=== PATIENT | male | born 1960 | race Caucasian/White ===

== ENCOUNTER 2017-09-01 12:07 | Inpatient (IN) | payer BC, OTHER ==
[~2017-09-01] VITALS: Ht 185.4 cm; Wt 148.2 kg
[~2017-09-01 12:07] MED LIST: COMMODE 3:1; DOCU1CAP39 PO; GABA400 PO; LEVEMIR SQ; LISI10 PO; NOVOLOGP2 SQ; OXYC1CAP PO; PACE200T4 PO; POLY119S PO; PROT40TA PO; Z.0.WALKERBAR; Z.0.WHEELBAR
[2017-09-01 12:15] VITALS: BP 140/63; PULSE 81; RESP 18; TEMP 98.3; O2SAT 94
[2017-09-01] MEDS ORDERED: INSU1INJ14 SQ (12:32)
[2017-09-01] MEDS ORDERED: TRAM50TA PO (12:32)
[2017-09-01] MEDS ORDERED: NOVOLOGP2 SQ (12:32)
[2017-09-01] MEDS ORDERED: VANCOMYCIN INJ 2,000 MG in SODIUM CHLORID 0.9% 500 ML INJ 500 ML IV STA (13:06)
[2017-09-01] MEDS ORDERED: PIPERACIL-TAZO 4.5 GM PREMIX 100 ML IV STA (13:06)
--- NOTE | 2017-09-01 13:13 | PD ---
HPI Chief Complaint: Skin Problem Time Seen by Provider: 12:49 Travel History International Travel<30 days: No Contact w/Intl Traveler<30days: No Traveled to known affect area: No History of Present Illness HPI This 57-year-old male is complaining of infection of his right foot. He has a history of diabetes for 20 years. He had an infection in his foot on in June which he believes cleared up. He went to see his windows phone developer last Sunday for some infection and she started him on antibiotics. He is not sure of this. He went to see his primary care doctor Sunday and was told that he should come to the hospital for intravenous antibiotics. He is not aware of fever or chills. He has neuropathy and does not have sensation in the foot. He does not have any pain. PFSH Past Medical History Arthritis: Yes Asthma: No Autoimmune Disease: No Anxiety: No Depression: No Heart Rhythm Problems: No Cancer: No Cardiovascular Problems: Yes High Cholesterol: Yes Chemotherapy: No Chest Pain: No Congestive Heart Failure: No COPD: No Cerebrovascular Accident: No Diabetes: Yes Patient Takes Glucophage: No Endocrine: Yes GERD: No Genitourinary: No Hiatal Hernia: Yes Immune Disorder: No Kidney Stones: No Musculoskeletal: Yes (right knee) Neurologic: Yes Psychiatric: No Reproductive: Yes (erectile dysfunction) Respiratory: Yes Migraines: No Radiation Therapy: No Renal Failure: No Seizures: No Sickle Cell Disease: No Sleep Apnea: Yes (didnt like the cpap) Thyroid Disease: No Ulcer: No Past Surgical History Abdominal Surgery: No AICD: No Arteriovenous Shunt: No Cardiac Surgery: No Ear Surgery: No Endocrine Surgery: No Eye Surgery: No Genitourinary Surgery: No Gynecologic Surgery: No Insulin Pump: No Joint Replacement: No Oral Surgery: No Pacemaker: No Thoracic Surgery: No Other Surgery: Yes (ARTHROSCOPIC MCL AND ACL REPAIR) Social History Alcohol Use: Yes (RARELY) Tobacco Use: No Substance Use: No Allergies-Medications (Allergen,Severity, Reaction): Coded Allergies: *MDRO Multi-Drug Resistant Organism (Verified Allergy, Unknown, 09/01/17) Hx MRSA 2011 Neck Wound Reported Meds & Prescriptions Reported Meds & Active Scripts Active Reported Gabapentin 300 Mg Cap 300 Mg PO TID Tramadol (Tramadol HCl) 50 Mg Tab 50 Mg PO Q4H PRN Tresiba Flextouch Pen Inj (Insulin Degludec Inj) 300 unit/3 ML Pen 80 Units SQ DAILY Novolog Inj (Insulin Aspart) 1,000 Unit/10 Ml Vial 0 SQ DIRECTED Sliding Scale as directed. Review of Systems General / Constitutional: No: Fever Eyes: No: Diploplia, Blurred Vision HENT: No: Headaches, Vertigo Cardiovascular: No: Chest Pain or Discomfort, Palpitations Respiratory: No: Cough, Shortness of Breath Gastrointestinal: No: Vomiting, Diarrhea Genitourinary: No: Urgency, Frequency Musculoskeletal: No: Myalgias, Arthralgias Skin: Positive Rash Neurologic: No: Weakness, Dizziness Psychiatric: No: Anxiety, Depression Physical Exam Narrative GENERAL: Well-developed male SKIN: Focused skin assessment warm/dry. HEAD: Atraumatic. Normocephalic. EYES: Pupils equal and round. No scleral icterus. No injection or drainage. ENT: No nasal bleeding or discharge. Mucous membranes pink and moist. NECK: Trachea midline. No JVD. CARDIOVASCULAR: Regular rate and rhythm. No murmur appreciated. RESPIRATORY: No accessory muscle use. Clear to auscultation. Breath sounds equal bilaterally. GASTROINTESTINAL: Abdomen soft, non-tender, nondistended. Hepatic and splenic margins not palpable. MUSCULOSKELETAL: His right foot is erythematous. There are draining ulcerations on the lateral aspect of the foot and on the medial aspect of the foot. There is an ulceration on the plantar surface of the toe. There is pus coming out of the foot. It is quite malodorous NEUROLOGICAL: Awake and alert. No obvious cranial nerve deficits. Motor grossly within normal limits. Normal speech. PSYCHIATRIC: Appropriate mood and affect; insight and judgment normal. Data Data Last Documented VS Vital Signs Date Time Temp Pulse Resp B/P (MAP) Pulse Ox O2 Delivery O2 Flow Rate FiO2 09/01/17 14:33 75 20 160/69 (99) 96 09/01/17 12:15 98.3 Orders Orders Complete Blood Count With Diff (09/01/17 13:06) Comprehensive Metabolic Panel (09/01/17 13:06) Lactic Acid Sepsis Protocol (09/01/17 13:06) Urinalysis - C+S If Indicated (09/01/17 13:06) Blood Culture (09/01/17 13:06) Wound Culture And Gram Stain (09/01/17 13:06) Chest, Single Ap (09/01/17 13:06) Blood Glucose (09/01/17 13:06) Ecg Monitoring (09/01/17 13:06) Iv Access Insert/Monitor (09/01/17 13:06) Oximetry (09/01/17 13:06) Oxygen Administration (09/01/17 13:06) Piperacil-Tazo 4.5 Gm Premix (Zosyn 4.5 (09/01/17 13:06) Vancomycin Inj (Vancomycin Inj) (09/01/17 13:06) Foot, Complete ([id number]) (09/01/17 13:13) Sodium Chlor 0.9% 1000 Ml Inj (Ns 1000 M (09/01/17 13:15) Potassium Chloride (Kcl) (09/01/17 14:30) Mri Foot W&W/O Contrast (09/01/17 ) Ns + Kcl Inj (09/01/17 15:00) Labs Laboratory Tests Test 09/01/17 13:53 White Blood Count 16.4 TH/MM3 Red Blood Count 4.19 MIL/MM3 Hemoglobin 11.8 GM/DL Hematocrit 35.6 % Mean Corpuscular Volume 84.9 FL Mean Corpuscular Hemoglobin 28.1 PG Mean Corpuscular Hemoglobin Concent 33.1 % Red Cell Distribution Width 12.6 % Platelet Count 248 TH/MM3 Mean Platelet Volume 8.6 FL Neutrophils (%) (Auto) 77.7 % Lymphocytes (%) (Auto) 11.1 % Monocytes (%) (Auto) 7.5 % Eosinophils (%) (Auto) 0.8 % Basophils (%) (Auto) 2.9 % Neutrophils # (Auto) 12.8 TH/MM3 Lymphocytes # (Auto) 1.8 TH/MM3 Monocytes # (Auto) 1.2 TH/MM3 Eosinophils # (Auto) 0.1 TH/MM3 Basophils # (Auto) 0.5 TH/MM3 CBC Comment DIFF FINAL Differential Comment Blood Urea Nitrogen 13 MG/DL Creatinine 0.90 MG/DL Random Glucose 129 MG/DL Total Protein 7.6 GM/DL Albumin 2.5 GM/DL Calcium Level 9.0 MG/DL Alkaline Phosphatase 109 U/L Aspartate Amino Transf (AST/SGOT) 7 U/L Alanine Aminotransferase (ALT/SGPT) 10 U/L Total Bilirubin 0.6 MG/DL Sodium Level 138 MEQ/L Potassium Level 3.2 MEQ/L Chloride Level 101 MEQ/L Carbon Dioxide Level 29.4 MEQ/L Anion Gap 8 MEQ/L Estimat Glomerular Filtration Rate 87 ML/MIN Lactic Acid Level 1.3 mmol/L MDM Medical Decision Making Medical Screen Exam Complete: Yes Emergency Medical Condition: Yes Medical Record Reviewed: Yes Differential Diagnosis Differential includes cellulitis, abscess, sepsis Narrative Course This gentleman is quite a severe cellulitis with draining abscess of his foot. He is a diabetic with neuropathy. X-ray of the foot is been obtained and there is swelling and soft tissue air in the lateral forefoot adjacent to the mid to distal fifth metatarsal. This concerning for possible osteomyelitis. Patient admitted initially to says that he was knocked his stay in the hospital but he has made arrangements and is now agreeable to staying. I have discussed the case with Dr. Zuniga and she requests that we obtain stat MRI of the foot with and without contrast as she is contemplating emergency surgery Diagnosis Primary Impression: Cellulitis and abscess of foot Admitting Information Admitting Physician Requests: Admit Rohit Ortiz MD Sep 01, 2017 13:13
[2017-09-01] MEDS ORDERED: SODIUM CHLOR 0.9% 1000 ML INJ 1,000 ML IV ONE (13:15)
[2017-09-01 13:28] VITALS: O2SAT 94
[2017-09-01 13:29] VITALS: BP 168/76; PULSE 76; RESP 20; O2SAT 95
[2017-09-01 14:03] LABS: AUTOMATED NEUTROPHIL # 12.8 TH/MM3 (1.8-7.7); BASOPHIL # 0.5 TH/MM3 (0-0.2); BASOPHIL % 2.9 % (0.0-2.0); EOSINOPHIL # 0.1 TH/MM3 (0-0.4); EOSINOPHIL % 0.8 % (0.0-4.0); HEMATOCRIT 35.6 % (39.0-51.0); HEMO FLAGS DIFF FINAL; LYMPH % 11.1 % (9.0-44.0); LYMPHOCYTE # 1.8 TH/MM3 (1.0-4.8); MEAN CELL VOLUME 84.9 FL (80.0-100.0); MEAN CORPUSCULAR HEMOGLOBIN 28.1 PG (27.0-34.0); MEAN CORPUSCULAR HGB CONC 33.1 % (32.0-36.0); MONO % 7.5 % (0.0-8.0); NEUT % 77.7 % (16.0-70.0); PLATELET COUNT 248 TH/MM3 (150-450); RED BLOOD COUNT 4.19 MIL/MM3 (4.50-5.90); RED CELL DISTRIBUTION WIDTH 12.6 % (11.6-17.2); WHITE BLOOD COUNT 16.4 TH/MM3 (4.0-11.0)
[2017-09-01 14:11] LABS: CHLORIDE 101 MEQ/L (98-107); POTASSIUM 3.2 MEQ/L (3.5-5.1); SODIUM (NA) 138 MEQ/L (136-145)
[2017-09-01 14:15] LABS: ANION GAP 8 MEQ/L (5-15); BICARBONATE 29.4 MEQ/L (21.0-32.0); BLOOD UREA NITROGEN 13 MG/DL (7-18)
[2017-09-01 14:18] LABS: ALT (GPT) 10 U/L (12-78); AST (GOT) 7 U/L (15-37); GLOMERULAR FILTRATION RATE 87 ML/MIN (>89)
[2017-09-01 14:19] LABS: TOTAL BILIRUBIN ADULT 0.6 MG/DL (0.2-1.0)
[2017-09-01 14:21] LABS: ALKALINE PHOSPHATASE 109 U/L (45-117)
--- NOTE | 2017-09-01 14:29 | RADRPT ---
EXAM DATE/TIME: 09/01/2017 14:08 [facility] COMPARISON: CHEST SINGLE AP, July 03, 2016, 15:33. INDICATIONS : Fever, non healing foot infection MEDICAL HISTORY : Diabetes mellitus type II. SURGICAL HISTORY : None. ENCOUNTER: Initial ACUITY: 2 months PAIN SCORE: 0/10 LOCATION: Bilateral chest FINDINGS: A single view of the chest demonstrates the lungs to be symmetrically aerated without evidence of mas s, infiltrate or effusion. The cardiomediastinal contours are unremarkable. Osseous structures are intact. CONCLUSION: No acute disease. Juancarlos Friedman MD on September 01, 2017 at 14:26 Board Certified Radiologist. This report was verified electronically.
[2017-09-01] MEDS ORDERED: POTASSIUM CHLORIDE 20 MEQ CONTROLLED RELEASE TAB PO ONE (14:30)
[2017-09-01 14:33] VITALS: BP 160/69; PULSE 75; RESP 20; O2SAT 96
--- NOTE | 2017-09-01 14:34 | RADRPT ---
EXAM DATE/TIME: 09/01/2017 14:09 [facility] COMPARISON: No previous studies available for comparison. INDICATIONS : Non healing wound right foot MEDICAL HISTORY : Diabetes mellitus type II. SURGICAL HISTORY : None. ENCOUNTER: Initial ACUITY: 2 months PAIN SCORE: 9/10 LOCATION: Right foot FINDINGS: There is swelling and soft tissue air in the lateral forefoot most conspicuously adjacent to the mid to distal fifth metatarsal. There are areas of focal cortical and subcortical osteoporosis involving the proximal aspect of the fifth toe proximal phalanx as well as the metatarsal head worrisome for po ssible osteomyelitis. The other toes are intact and unremarkable there CONCLUSION: Soft tissue swelling and soft tissue air as well as bony findings worrisome for osteomyelitis as desc ribed Juancarlos Friedman MD on September 01, 2017 at 14:30 Board Certified Radiologist. This report was verified electronically.
[2017-09-01] MEDS ORDERED: GABA300C5 PO (14:35)
[2017-09-01] MEDS ORDERED: NS + KCL 20 MEQ INJ 1,000 ML IV SCH (15:00)
--- NOTE | 2017-09-01 15:31 | HHI.HP ---
HPI Service [facility] Primary Care Physician Arnav Cline Admission Diagnosis CELLULITIS, ABCESS OF FOOT Diagnoses: Chief Complaint: dr sent him Travel History International Travel<30 Days: No Contact w/Intl Traveler <30 Da: No Traveled to Known Affected Are: No History of Present Illness This patient is a pleasant 57-year-old gentleman with a 20 year history of diabetes mellitus who has had previous right foot infection which apparently cleared with the outpatient management. Over the last several days he's had increased swelling and erythema of the right lateral foot. He reports a blister in his shoes and that may have caused the problem skin changes. Many cases he's had 2 weeks of increased erythema, edema, pallor and pus in his right foot. He saw his outpatient cloth sander who gave him a course of oral antibiotics. He tried wearing a postop boot without success. He finally saw his primary doctor who urged him to come to the hospital however he decided to come on a different day which was today. Patient arrived to the emergency room with significant right foot infection and signs and symptoms of abscess and osteomyelitis on imaging. Patient was started on IV antibiotics. He has minimal pain due to severe diabetic neuropathy. He has no objective fever but has subjective fever and chills. Patient's been admitted to the hospital for severe diabetic foot infection. Review of Systems Constitutional: COMPLAINS OF: Fever (subjective), Chills, DENIES: Diaphoretic episodes, Fatigue, Weight gain, Weight loss, Dizziness, Change in appetite, Night Sweats Endocrine: DENIES: Heat/cold intolerance, Polydipsia, Polyuria, Polyphagia Eyes: DENIES: Blurred vision, Diplopia, Eye inflammation, Eye pain, Vision loss , Photosensitivity, Double Vision Ears, nose, mouth, throat: DENIES: Tinnitus, Hearing loss, Vertigo, Nasal discharge, Oral lesions, Throat pain, Hoarseness, Ear Pain, Running Nose, Epistaxis, Sinus Pain, Toothache, Odynophagia Respiratory: DENIES: Apneas, Cough, Snoring, Wheezing, Hemoptysis, Sputum production, Shortness of breath Cardiovascular: DENIES: Chest pain, Palpitations, Syncope, Dyspnea on Exertion , PND, Lower Extremity Edema, Orthopnea, Claudication Gastrointestinal: DENIES: Abdominal pain, Black stools, Bloody stools, Constipation, Diarrhea, Nausea, Vomiting, Difficulty Swallowing, Anorexia Genitourinary: DENIES: Sexual dysfunction, Urinary frequency, Urinary incontinence, Urgency, Hematuria, Dysuria, Nocturia, Penile Discharge, Testicular Pain, Testicular Swelling Musculoskeletal: DENIES: Joint pain, Muscle aches, Stiffness, Joint Swelling, Back pain, Neck pain Integumentary: DENIES: Abnormal pigmentation, Nail changes, Pruritus, Rash Hematologic/lymphatic: DENIES: Bruising, Lymphadenopathy Immunologic/allergic: DENIES: Eczema, Urticaria Neurologic: COMPLAINS OF: Headache, DENIES: Abnormal gait, Localized weakness, Paresthesias, Seizures, Speech Problems, Tremor, Poor Balance Psychiatric: DENIES: Anxiety, Confusion, Mood changes, Depression, Hallucinations, Agitation, Suicidal Ideation, Homicidal Ideation, Delusions Past Family Social History Past Medical History DM with neuropathy Past Surgical History none Reported Medications meds in EMR, with recent Po antibiotics Allergies: Coded Allergies: *MDRO Multi-Drug Resistant Organism (Verified Allergy, Unknown, 09/01/17) Hx MRSA 2011 Neck Wound Active Ordered Medications reviewed in EMR Family History mom had copd dad dementia brother with diabetes Social History no tobacco, occasional etoh lives alone 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 Obese SKIN: No rashes, ecchymoses or lesions. Cool and dry. HEAD: Atraumatic. Normocephalic. No temporal or scalp tenderness. EYES: Pupils equal round and reactive. Extraocular motions intact. No scleral icterus. No injection or drainage. ENT: Nose without bleeding, purulent drainage or septal hematoma. Throat without erythema, tonsillar hypertrophy or exudate. Uvula midline. Airway patent. NECK: Trachea midline. No JVD or lymphadenopathy. Supple, nontender, no meningeal signs. CARDIOVASCULAR: Regular rate and rhythm without murmurs, gallops, or rubs. RESPIRATORY: Clear to auscultation. Breath sounds equal bilaterally. No wheezes , rales, or rhonchi. GASTROINTESTINAL: Abdomen soft, non-tender, nondistended. No hepato-splenomegaly , or palpable masses. No guarding. MUSCULOSKELETAL: right foot erythema, edema, with lateral abscess sized about a silver dollar, with purulent discharge on dorsal and plantar openings with lymphangitic spread, great toe plantar shallow ulceration, other 3 Extremities without clubbing, cyanosis, or edema. No joint tenderness, effusion, or edema noted. No calf tenderness. Negative Homans sign bilaterally. NEUROLOGICAL: Awake and alert. Cranial nerves II through XII intact. Motor and sensory grossly within normal limits. Five out of 5 muscle strength in all muscle groups. Normal speech. Laboratory Laboratory Tests Test 09/01/17 13:53 White Blood Count 16.4 Red Blood Count 4.19 Hemoglobin 11.8 Hematocrit 35.6 Mean Corpuscular Volume 84.9 Mean Corpuscular Hemoglobin 28.1 Mean Corpuscular Hemoglobin Concent 33.1 Red Cell Distribution Width 12.6 Platelet Count 248 Mean Platelet Volume 8.6 Neutrophils (%) (Auto) 77.7 Lymphocytes (%) (Auto) 11.1 Monocytes (%) (Auto) 7.5 Eosinophils (%) (Auto) 0.8 Basophils (%) (Auto) 2.9 Neutrophils # (Auto) 12.8 Lymphocytes # (Auto) 1.8 Monocytes # (Auto) 1.2 Eosinophils # (Auto) 0.1 Basophils # (Auto) 0.5 CBC Comment DIFF FINAL Differential Comment Blood Urea Nitrogen 13 Creatinine 0.90 Random Glucose 129 Total Protein 7.6 Albumin 2.5 Calcium Level 9.0 Alkaline Phosphatase 109 Aspartate Amino Transf (AST/SGOT) 7 Alanine Aminotransferase (ALT/SGPT) 10 Total Bilirubin 0.6 Sodium Level 138 Potassium Level 3.2 Chloride Level 101 Carbon Dioxide Level 29.4 Anion Gap 8 Estimat Glomerular Filtration Rate 87 Lactic Acid Level 1.3 Date/Time Source Procedure Growth Status 09/01/17 13:53 Blood Peripheral Aerobic Blood Culture Pending Received 09/01/17 13:53 Blood Peripheral Anaerobic Blood Culture Pending Received 09/01/17 13:15 Wound Foot Gram Stain Pending Received 09/01/17 13:15 Wound Foot Wound Culture Pending Received Result Diagram: 09/01/17 1353 09/01/17 1353 Imaging Last Impressions Foot X-Ray 09/01/17 1313 Signed Impressions: Service Date/Time: Friday, September 01, 2017 14:09 - CONCLUSION: Soft tissue swelling and soft tissue air as well as bony findings worrisome for osteomyelitis as described Juancarlos Friedman MD Chest X-Ray 09/01/17 1306 Signed Impressions: Service Date/Time: Friday, September 01, 2017 14:08 - CONCLUSION: No acute disease. Juancarlos Friedman MD Capfigueroa VTE Risk Assessment Caprini VTE Risk Assessment: Mod/High Risk (score >= 2) Caprini Risk Assessment Model Point Value = 1 Point Value = 2 Point Value = 3 Point Value = 5 Age 41-60 Minor surgery BMI > 25 kg/m2 Swollen legs Varicose veins or History of unexplained or recurrent spontaneous Oral contraceptives or hormone replacement Sepsis (< 1 month) Serious lung disease, including pneumonia (< 1 month) Abnormal pulmonary function Acute myocardial infarction Congestive heart failure (< 1 month) History of inflammatory bowel disease Medical patient at bed rest Age 61-74 Arthroscopic surgery Major open surgery (> 45 min) Laparoscopic surgery (> 45 min) Malignancy Confined to bed (> 72 hours) Immobilizing plaster cast Central venous access Age >= 75 History of VTE Family history of VTE Factor V Leiden Prothrombin [id number] Lupus anticoagulant Anticardiolipin antibodies Elevated serum homocysteine Heparin-induced thrombocytopenia Other congenital or acquired thrombophilia Stroke (< 1 month) Elective arthroplasty Hip, pelvis, or leg fracture Acute spinal cord injury (< 1 month) Prophylaxis Regimen Total Risk Factor Score Risk Level Prophylaxis Regimen 0-1 Low Early ambulation 2 Moderate Order ONE of the following: *Sequential Compression Device (SCD) *Heparin 5000 units SQ BID 3-4 Higher Order ONE of the following medications: *Heparin 5000 units SQ TID *Enoxaparin/Lovenox 40 mg SQ daily (WT < 150 kg, CrCl > 30 mL/min) *Enoxaparin/Lovenox 30 mg SQ daily (WT < 150 kg, CrCl > 10-29 mL/min) *Enoxaparin/Lovenox 30 mg SQ BID (WT < 150 kg, CrCl > 30 mL/min) AND/OR *Sequential Compression Device (SCD) 5 or more Highest Order ONE of the following medications: *Heparin 5000 units SQ TID (Preferred with Epidurals) *Enoxaparin/Lovenox 40 mg SQ daily (WT < 150 kg, CrCl > 30 mL/min) *Enoxaparin/Lovenox 30 mg SQ daily (WT < 150 kg, CrCl > 10-29 mL/min) *Enoxaparin/Lovenox 30 mg SQ BID (WT < 150 kg, CrCl > 30 mL/min) AND *Sequential Compression Device (SCD) Assessment and Plan Problem List: (1) Abscess of right foot including toes ICD Code: L02.611 - Cutaneous abscess of right foot Plan: IV Antibiotics (vanc/zosyn) MRI Foot Podiatry for possible OM (2) Leukocytosis ICD Code: D72.829 - Elevated white blood cell count, unspecified Plan: Probably from infection Follow up as we treat infection (3) Anemia ICD Code: D64.9 - Anemia, unspecified Plan: likely chronic, work up in progress (4) Hyperkalemia ICD Code: E87.5 - Hyperkalemia Plan: replace K and check mag (5) Head ache ICD Code: R51 - Headache Plan: chronic, Tylenol as needed (6) DM (diabetes mellitus) ICD Code: E11.9 - Type 2 diabetes mellitus without complications Status: Chronic Plan: patient on tresiba, cont home med ADA diet accuchecks hg a 1 c pending Code Status full code Discussed Condition With Patient, ER Curt, [employer] Physician Certification 2 Midnight Certification Type: Admission for Inpatient Services Order for Inpatient Services The services are ordered in accordance with Medicare regulations or non- Medicare payer requirements, as applicable. In the case of services not specified as inpatient-only, they are appropriately provided as inpatient services in accordance with the 2-midnight benchmark. Estimated LOS (days): 4 4 days is the estimated time the patient will need to remain in the hospital, assuming treatment plan goals are met and no additional complications. Post-Hospital Plan: Not yet determined Concepcion Vaca MD Sep 01, 2017 15:31
[2017-09-01] MEDS ORDERED: GLUCAGON 1 MG/ML VIAL OTHER PRN (15:45)
[2017-09-01] MEDS ORDERED: NALOXONE HCL 0.4 MG/ML AMP IV PUSH PRN (15:45)
[2017-09-01] MEDS ORDERED: SODIUM CHLORIDE 0.9% FLUSH 10 ML FLUSH IV FLUSH PRN (15:45)
[2017-09-01] MEDS ORDERED: POTASSIUM CHLORIDE 10 MEQ CONTROLLED RELEASE TAB PO ONE (15:45)
[2017-09-01] MEDS ORDERED: ACETAMINOPHEN 325 MG TAB PO PRN (15:45)
[2017-09-01] MEDS ORDERED: DEXTROSE 50% IN WATER 50 ML VIAL(D50) IV PUSH PRN (15:45)
[2017-09-01] MEDS: HEPARIN SODIUM - SQ 10,000 UNITS/ML VIAL SQ SCH ×2 (15:45→20:32)
[2017-09-01] MEDS ORDERED: GADODIAMIDE PF 287 MG/ML 20 ML VIAL (for RAD MRI) IVCONTRAST ONE (16:02)
[2017-09-01 16:15] LABS: MAGNESIUM 2.2 MG/DL (1.5-2.5)
--- NOTE | 2017-09-01 16:16 | PD.CONS ---
History of Present Illness Service Podiatry Consult Requested By ED Reason for Consult Infection R foot Primary Care Physician Arnav Cline Diagnoses: History of Present Illness Patient relates infection R foot and most recent visit to see Dr Weiss on Sunday. He has failed outpatient treatment Past Family Social History Allergies: Coded Allergies: *MDRO Multi-Drug Resistant Organism (Verified Allergy, Unknown, 09/01/17) Hx MRSA 2012 Neck Wound Past Medical History DM with neuropathy Past Surgical History none Active Ordered Medications Current Medications Medications (Trade) Dose Ordered Sig/Pamela Route Start Time Stop Time Status Last Admin Potassium Chloride/Sodium Chloride 1,000 ml @ 100 mls/hr Q10H IV 09/01/17 15:00 (KCl) 30 meq ONCE ONCE PO 09/01/17 15:45 09/01/17 15:46 UNV Sodium Chloride 1,000 ml @ 100 mls/hr Q10H IV 09/01/17 15:34 UNV (NS Flush) 2 ml UNSCH PRN IV FLUSH 09/01/17 15:45 UNV (NS Flush) 2 ml BID IV FLUSH 09/01/17 21:00 UNV (Tylenol) 650 mg Q4H PRN PO 09/01/17 15:45 UNV (Heparin Inj) 5,000 units Q8H SQ 09/01/17 15:45 UNV (Narcan Inj) 0.4 mg UNSCH PRN IV PUSH 09/01/17 15:45 UNV (Senokot) 17.2 mg Q12H PRN PO 09/01/17 15:45 UNV (D50w (Vial) Inj) 50 ml UNSCH PRN IV PUSH 09/01/17 15:45 UNV (Glucagon Inj) 1 mg UNSCH PRN OTHER 09/01/17 15:45 UNV (NovoLOG SUPPLEMENTAL SCALE) 1 ACHS SLIDING SCALE SQ 09/01/17 17:00 UNV (Neurontin) 300 mg TID PO 09/01/17 18:00 UNV (Ultram) 50 mg Q4H PRN PO 09/01/17 15:45 UNV Non-Formulary Medication 80 units DAILY SQ 09/02/17 09:00 UNV Family History mom had copd dad dementia brother with diabetes Social History no tobacco, occasional etoh lives alone 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 Erythema to dorsal foot. No ascending erythema. Palpable pedal pulses. Sensation absent to light touch Laboratory Laboratory Tests Test 09/01/17 13:53 White Blood Count 16.4 Red Blood Count 4.19 Hemoglobin 11.8 Hematocrit 35.6 Mean Corpuscular Volume 84.9 Mean Corpuscular Hemoglobin 28.1 Mean Corpuscular Hemoglobin Concent 33.1 Red Cell Distribution Width 12.6 Platelet Count 248 Mean Platelet Volume 8.6 Neutrophils (%) (Auto) 77.7 Lymphocytes (%) (Auto) 11.1 Monocytes (%) (Auto) 7.5 Eosinophils (%) (Auto) 0.8 Basophils (%) (Auto) 2.9 Neutrophils # (Auto) 12.8 Lymphocytes # (Auto) 1.8 Monocytes # (Auto) 1.2 Eosinophils # (Auto) 0.1 Basophils # (Auto) 0.5 CBC Comment DIFF FINAL Differential Comment Blood Urea Nitrogen 13 Creatinine 0.90 Random Glucose 129 Total Protein 7.6 Albumin 2.5 Calcium Level 9.0 Alkaline Phosphatase 109 Aspartate Amino Transf (AST/SGOT) 7 Alanine Aminotransferase (ALT/SGPT) 10 Total Bilirubin 0.6 Sodium Level 138 Potassium Level 3.2 Chloride Level 101 Carbon Dioxide Level 29.4 Anion Gap 8 Estimat Glomerular Filtration Rate 87 Lactic Acid Level 1.3 Date/Time Source Procedure Growth Status 09/01/17 13:53 Blood Peripheral Aerobic Blood Culture Pending Received 09/01/17 13:53 Blood Peripheral Anaerobic Blood Culture Pending Received 09/01/17 13:15 Wound Foot Gram Stain Pending Received 09/01/17 13:15 Wound Foot Wound Culture Pending Received Result Diagram: 09/01/17 9217 09/01/17 4373 Imaging Last 72 hours Impressions Foot X-Ray 09/01/17 1313 Signed Impressions: Service Date/Time: Friday, September 01, 2017 14:09 - CONCLUSION: Soft tissue swelling and soft tissue air as well as bony findings worrisome for osteomyelitis as described Juancarlos Friedman MD Chest X-Ray 09/01/17 1306 Signed Impressions: Service Date/Time: Friday, September 01, 2017 14:08 - CONCLUSION: No acute disease. Juancarlos Friedman MD MRI PENDING Course Last 72 hours Impressions Foot X-Ray 09/01/17 1313 Signed Impressions: Service Date/Time: Friday, September 01, 2017 14:09 - CONCLUSION: Soft tissue swelling and soft tissue air as well as bony findings worrisome for osteomyelitis as described Juancarlos Friedman MD Chest X-Ray 09/01/17 1306 Signed Impressions: Service Date/Time: Friday, September 01, 2017 14:08 - CONCLUSION: No acute disease. Juancarlos Friedman MD Foot MRI 09/01/17 0000 Signed Impressions: Service Date/Time: Friday, September 01, 2017 16:00 - CONCLUSION: Extensive cellulitis. Soft tissue air. Findings worrisome for osteomyelitis in the fifth digit. Juancarlos Friedman MD Assessment and Plan Assessment and Plan infection R foot To OR tomorrow morning for I&D with possible amputation 5th digit vs partial 5th ray and likely wound vac NPO after midnight Madan Zuniga DPM Sep 01, 2017 16:16
--- NOTE | 2017-09-01 16:50 | RADRPT ---
EXAM DATE/TIME: 09/01/2017 16:00 [facility] COMPARISON: FOOT RIGHT COMPLETE ([id number]), September 01, 2017, 14:09. INDICATIONS : Osteomyelitis. Draining wound lateral right foot. CONTRAST: 20 cc Omniscan (gadodiamide) IV MEDICAL HISTORY : Diabetes mellitus type 2. SURGICAL HISTORY : None. ENCOUNTER: Initial ACUITY: 1 day PAIN SCORE: 2/10 LOCATION: Right FOOT. TECHNIQUE: Multiplanar, multisequence MRI examination was performed without contrast and after the intravenous a dministration of gadolinium. FINDINGS: There is extensive cellulitic change involving the forefoot, mainly lateral and dorsal. There is soft tissue gas present. There is no evidence of discrete drainable fluid collection. There are signal ch anges present in the fifth metatarsal head and proximal aspect of the fifth toe proximal phalanx worr isome for early osteomyelitis. The bony elements are otherwise benign in unremarkable. CONCLUSION: Extensive cellulitis. Soft tissue air. Findings worrisome for osteomyelitis in the fifth digit. Juancarlos Friedman MD on September 01, 2017 at 16:45 Board Certified Radiologist. This report was verified electronically.
[2017-09-01] MEDS: INSULIN ASPART SUPPLEMENTAL SCALE SQ SCH ×2 (17:00→19:47)
[2017-09-01 18:22] LABS: TRANSFERRIN IRON PROFILE 158 MG/DL (200-360)
[2017-09-01] MEDS: GABAPENTIN 300 MG CAP PO SCH (18:44)
[2017-09-01] MEDS: SODIUM CHLORIDE 0.9% FLUSH 10 ML FLUSH IV FLUSH SCH (19:47)
[2017-09-01] MEDS: SODIUM CHLOR 0.9% 1000 ML INJ 1,000 ML IV SCH (19:47)
[2017-09-01 20:45] VITALS: BP 137/68; PULSE 81; RESP 20; TEMP 100; O2SAT 94
[2017-09-01] MEDS: traMADol HCL 50 MG TAB PO PRN (23:34)
[2017-09-02 00:11] VITALS: BP 185/82; PULSE 85; RESP 18; TEMP 99.6; O2SAT 92
[2017-09-02] MEDS: SODIUM CHLOR 0.9% 1000 ML INJ 1,000 ML IV SCH ×3 (01:34→17:23)
[2017-09-02 04:00] VITALS: RESP 20
[2017-09-02] MEDS: HEPARIN SODIUM - SQ 10,000 UNITS/ML VIAL SQ SCH ×3 (05:47→20:15)
[2017-09-02] MEDS ORDERED: BUPIVACAINE HCL PF 0.25% 30 ML VIAL ONE (07:29)
[2017-09-02 07:52] LABS: AUTOMATED NEUTROPHIL # 10.9 TH/MM3 (1.8-7.7); BASOPHIL # 0.1 TH/MM3 (0-0.2); BASOPHIL % 0.4 % (0.0-2.0); EOSINOPHIL # 0.2 TH/MM3 (0-0.4); EOSINOPHIL % 1.6 % (0.0-4.0); HEMATOCRIT 32.3 % (39.0-51.0); LYMPH % 15.1 % (9.0-44.0); LYMPHOCYTE # 2.2 TH/MM3 (1.0-4.8); MEAN CELL VOLUME 85.4 FL (80.0-100.0); MEAN CORPUSCULAR HEMOGLOBIN 27.9 PG (27.0-34.0); MEAN CORPUSCULAR HGB CONC 32.6 % (32.0-36.0); MONO % 6.3 % (0.0-8.0); NEUT % 76.6 % (16.0-70.0); PLATELET COUNT 252 TH/MM3 (150-450); RED BLOOD COUNT 3.79 MIL/MM3 (4.50-5.90); RED CELL DISTRIBUTION WIDTH 12.5 % (11.6-17.2); WHITE BLOOD COUNT 14.3 TH/MM3 (4.0-11.0)
[2017-09-02 07:56] LABS: HEMO FLAGS DIFF FINAL
[2017-09-02] MEDS ORDERED: NEOMYCIN/POLYMYXIN 1 ML G.U. IRRIGANT ONE (07:59)
[2017-09-02 08:00] VITALS: BP 120/80; PULSE 80; RESP 18; TEMP 98.4; O2SAT 96
[2017-09-02 08:00] LABS: POTASSIUM 3.5 MEQ/L (3.5-5.1)
[2017-09-02] MEDS: INSULIN ASPART SUPPLEMENTAL SCALE SQ SCH ×4 (08:00→20:14)
[2017-09-02 08:06] LABS: BICARBONATE 26.8 MEQ/L (21.0-32.0)
--- NOTE | 2017-09-02 08:17 | PD.PN.STU ---
Subjective Remarks Pt was unable to sleep through the night due to neuropathic pain secondary to DM. He reports that he normally takes all 3 of his gabapentin dose at night before 7pm. This regimen has been the only way to relieve his lower extremity neuropathy. Last night, he reports that the nurses only provided him with one dose at the wrong time which led him to be aggravated and unable to sleep. He also reports other personal stressors that added to his frustration. pt also denies using own insulin medication, reports receiving insulin from hospital. Denies fever, chills, CP, SOB. Objective Vitals Vital Signs Date Time Temp Pulse Resp B/P (MAP) Pulse Ox O2 Delivery O2 Flow Rate FiO2 09/02/17 04:00 20 09/02/17 00:11 99.6 85 18 185/82 (116) 92 09/01/17 20:45 100.0 81 20 137/68 (91) 94 09/01/17 17:30 09/01/17 14:33 75 20 160/69 (99) 96 09/01/17 13:29 76 20 168/76 (106) 95 09/01/17 13:28 94 09/01/17 12:15 98.3 81 18 140/63 (88) 94 I/O 09/01/17 09/01/17 09/01/17 09/02/17 09/02/17 09/02/17 07:00 15:00 23:00 07:00 15:00 23:00 Intake Total 500 ml 1000 ml Output Total 750 ml Balance 500 ml 250 ml IV Total 500 ml 1000 ml Output Urine Total 750 ml # Voids 0 Result Diagram: 09/01/17 1353 09/01/17 1353 Objective Remarks GENERAL: frustrated but calm, obese male who was in no acute distress SKIN: Warm and dry. HEAD: Normocephalic. EYES: No scleral icterus. No injection or drainage. CARDIOVASCULAR: Regular rate and rhythm without murmurs, gallops, or rubs. RESPIRATORY: Breath sounds equal bilaterally. No accessory muscle use. GASTROINTESTINAL: Abdomen soft, non-tender, nondistended. MUSCULOSKELETAL: right foot and ankle clean bandaging. great toe plantar shallow ulceration, other extremities without clubbing, cyanosis, or edema. A/P Assessment and Plan 1. Rt. foot abscess 2. Leukocytosis 3. Anemia 4. Hyperkalemia 5. Headache 6. Diabetes Mellitus Problem List: (1) Abscess of right foot including toes ICD Code: L02.611 - Cutaneous abscess of right foot Plan: IV Antibiotics (vanc/zosyn) MRI Foot Podiatry for possible OM (2) Leukocytosis ICD Code: D72.829 - Elevated white blood cell count, unspecified Plan: Probably from infection Follow up as we treat infection (3) Anemia ICD Code: D64.9 - Anemia, unspecified Plan: likely chronic, work up in progress (4) Hyperkalemia ICD Code: E87.5 - Hyperkalemia Plan: replace K and check mag (5) Head ache ICD Code: R51 - Headache Plan: chronic, Tylenol as needed (6) DM (diabetes mellitus) ICD Code: E11.9 - Type 2 diabetes mellitus without complications Status: Chronic Plan: patient on tresiba, cont home med ADA diet accuchecks hg a 1 c pending Steph Madrid M3 Sep 02, 2017 07:51 Concepcion Vaca MD Sep 02, 2017 17:05
[2017-09-02] MEDS: SODIUM CHLORIDE 0.9% FLUSH 10 ML FLUSH IV FLUSH SCH ×2 (09:00→20:02)
[2017-09-02] MEDS ORDERED: INSULIN DEGLUDEC SQ SCH (09:00)
--- NOTE | 2017-09-02 09:37 | HHI.PR ---
Immediate Post Op Note Procedure Date: Sep 02, 2017 Pre Op Diagnosis: Osteomyelitis R 5th metatarsal Gas gangrene R foot Post Op Diagnosis: Same Surgeon: Madan Zuniga DPM Interpretative Dancer(s): Staff Procedure: I&D R foot with partial 5th ray amputation and bone biopsy Findings: Consistent with diagnosis. Plantar wound sub 5th met head communicating to dorsal wound at level of midshaft 5th metatarsal area with necrotic tissue and foul odor. Erythema across dorsal foot with edema. Additional Information: Incision made to encompass and disarticulate R 5th toe at MTP joint. Necrotic tissue removed with rongeur and #15 blade dorsally across to level of 4th metatarsal midshaft area and dorsal 4th MTP joint and plantarly along distal 5th metatarsal. Irrigation with 6L NS with irrigant, followed by Partial closure with 2-0 nylon and packed open, 4x4, abd x 2, cast padding, argenis R foot. Prior to partial closure, no further necrotic tissue visualized and healthy bleeding tissue apparent Will eval in the coming days to determine if further surgery required. Complications: None Specimen(s) removed: 1. culture R foot 2. partial 5th ray R foot 3. Bone biopsy R residual 5th metatarsal Estimated blood loss: 50mL Anesthesia: General Drains: None IVF Tourniquet time (min at mmHg) n/a Patient to: PACU Patient Condition: Good Date/Time of Procedure: SEE SURGICAL CARE RECORD Madan Zuniga DPM Sep 02, 2017 09:37
[2017-09-02] MEDS ORDERED: INFLUENZA VIRUS VACCINE (QUADRIVALENT) 0.5 ML SYR IM ONE (10:00)
[2017-09-02] MEDS ORDERED: PNEUMOCOCCAL POLYVALENT INJ 25 MCG/0.5 ML SYR IM ONE (10:00)
[2017-09-02] MEDS ORDERED: LACTATED RINGER'S 1000 ML INJ 1,000 ML ONE (10:14)
[2017-09-02] MEDS ORDERED: MORPHINE SULFATE 4 MG/ML INJ ONE (10:20)
--- NOTE | 2017-09-02 10:22 | RADRPT ---
EXAM DATE/TIME: 09/02/2017 09:57 [facility] COMPARISON: FOOT RIGHT COMPLETE ([id number]), September 01, 2017, 14:09. INDICATIONS : Post op right foot surgery MEDICAL HISTORY : Diabetes mellitus type II. SURGICAL HISTORY : foot surgery ENCOUNTER: Subsequent ACUITY: 2 months PAIN SCORE: Non-responsive. LOCATION: Right foot FINDINGS: Post operative examination demonstrates interval resection of the fifth digit. There is no evidence o f complication. The remainder of the osseous structures are intact. CONCLUSION: 1. Interval resection of the fifth digit. Jesus Ferreira MD on September 02, 2017 at 10:19 Board Certified Radiologist. This report was verified electronically.
[2017-09-02] MEDS ORDERED: POVIDONE IODINE 5% (ANTISEPSIS KIT) 4 APPLICATIONS EACH NARE PRN (10:30)
[2017-09-02] MEDS ORDERED: INSULIN HUMAN REGULAR 1,000 UNITS/10 ML VIAL SQ PRN (10:30)
[2017-09-02] MEDS ORDERED: LACTATED RINGER'S 1000 ML IV PRN (10:30)
[2017-09-02] MEDS ORDERED: CHLORHEXIDINE GLUCONATE 2 % 1 PACK (2 CLOTHS) TOPICAL PRN (10:30)
[2017-09-02] MEDS ORDERED: METOPROLOL TARTRATE 25 MG TAB PO PRN (10:30)
[2017-09-02] MEDS ORDERED: SODIUM CHLORID 0.9% 500 ML IV PRN (10:30)
[2017-09-02 11:58] LABS: HEMOGLOBIN A1a 1.1 %; HEMOGLOBIN A1b 2.1 %; HEMOGLOBIN LA1C 1.6 %; HEMOGLOBIN P3 3.8 %
[2017-09-02 12:00] VITALS: BP 115/82; PULSE 70; RESP 18; TEMP 97.9; O2SAT 93
[2017-09-02] MEDS ORDERED: ONDANSETRON HCL 4 MG/2 ML VIAL IV PUSH ONE (12:00)
[2017-09-02] MEDS ORDERED: PROPOFOL 200 MG/20 ML AMP IV ONE (12:00)
[2017-09-02] MEDS: GABAPENTIN 300 MG CAP PO SCH (12:03)
--- NOTE | 2017-09-02 12:58 | EKG ---
Date Performed: 09/02/2017 Time Performed: 06:03:36 PTAGE: 57 years EKG: Sinus rhythm MODERATE INTRAVENTRICULAR CONDUCTION DELAY BORDERLINE ECG NO PREVIOUS TRACING DOCTOR: Silas Trivedi Interpretating Date/Time 09/02/2017 12:56:12
[2017-09-02 16:00] VITALS: BP 155/85; PULSE 75; RESP 18; TEMP 97.7; O2SAT 93
--- NOTE | 2017-09-02 17:11 | HHI.PR ---
Subjective Remarks Patient seen today in follow-up for right diabetic foot infection. Seen postoperatively after her fifth ray resection for osteomyelitis. Tolerate antibiotics well. No pain complaints due to severe neuropathy Objective Vitals Vital Signs Date Time Temp Pulse Resp B/P (MAP) Pulse Ox O2 Delivery O2 Flow Rate FiO2 09/02/17 12:00 97.9 70 18 115/82 (93) 93 09/02/17 10:45 67 18 132/59 (83) 96 Nasal Cannula 3 09/02/17 10:30 97.8 68 18 120/61 (80) 94 Nasal Cannula 3 09/02/17 10:15 68 18 127/57 (80) 94 Nasal Cannula 3 09/02/17 10:00 74 18 136/78 (97) 94 Nasal Cannula 3 09/02/17 09:45 76 18 133/76 (95) 94 Nasal Cannula 3 09/02/17 09:30 98.0 73 18 104/72 (83) 95 Nasal Cannula 4 09/02/17 08:00 98.4 80 18 120/80 (93) 96 09/02/17 07:35 98.3 76 18 139/64 (89) 95 09/02/17 04:00 20 09/02/17 00:11 99.6 85 18 185/82 (116) 92 09/01/17 20:45 100.0 81 20 137/68 (91) 94 09/01/17 17:30 I/O 09/01/17 09/01/17 09/01/17 09/02/17 09/02/17 09/02/17 07:00 15:00 23:00 07:00 15:00 23:00 Intake Total 500 ml 1000 ml 1150 ml Output Total 750 ml Balance 500 ml 250 ml 1150 ml IV Total 500 ml 1000 ml 1150 ml Output Urine Total 750 ml # Voids 0 0 Result Diagram: 09/02/17 0656 09/02/17 0656 Imaging Last Impressions Foot X-Ray 09/02/17 0000 Signed Impressions: Service Date/Time: Saturday, September 02, 2017 09:57 - CONCLUSION: 1. Interval resection of the fifth digit. Jesus Ferreira MD Chest X-Ray 09/01/17 1306 Signed Impressions: Service Date/Time: Friday, September 01, 2017 14:08 - CONCLUSION: No acute disease. Juancarlos Friedman MD Foot MRI 09/01/17 0000 Signed Impressions: Service Date/Time: Friday, September 01, 2017 16:00 - CONCLUSION: Extensive cellulitis. Soft tissue air. Findings worrisome for osteomyelitis in the fifth digit. Juancarlos Friedman MD Objective Remarks GENERAL: This is a well-nourished, well-developed patient, in no apparent distress. CARDIOVASCULAR: Regular rate and rhythm without murmurs, gallops, or rubs. RESPIRATORY: Clear to auscultation. Breath sounds equal bilaterally. No wheezes , rales, or rhonchi. GASTROINTESTINAL: Abdomen soft, non-tender, nondistended. Normal active bowel sounds MUSCULOSKELETAL: Right foot dressed postoperatively, Extremities without clubbing, cyanosis, or edema. NEURO: Alert & Oriented x4 to person, place, time, situation. Moves all ext x4 A/P Problem List: (1) Abscess of right foot including toes ICD Code: L02.611 - Cutaneous abscess of right foot Plan: Continue current IV Antibiotics (vanc/zosyn), group B strep on early superficial cultures, follow deep surgical cultures and blood cultures for further antibiotic management MRI Foot consistent with abscess and osteomyelitis Status post fifth ray resection Will follow podiatry should further surgical intervention be needed (2) Leukocytosis ICD Code: D72.829 - Elevated white blood cell count, unspecified Plan: Probably from infection improved (3) Anemia ICD Code: D64.9 - Anemia, unspecified Plan: Chronic and iron deficiency Add by mouth iron (4) Hyperkalemia ICD Code: E87.5 - Hyperkalemia Plan: Continue to replace electrolytes as needed (5) Head ache ICD Code: R51 - Headache Plan: chronic, Tylenol as needed (6) DM (diabetes mellitus) ICD Code: E11.9 - Type 2 diabetes mellitus without complications Status: Chronic Plan: With neuropathy on gabapentin patient on tresiba, cont home med ADA diet accuchecks hg a 1 c 8.9 Assessment and Plan DVT prophylaxis with heparin Pain management w/ iv morphine Concepcion Vaca MD Sep 02, 2017 17:11
[2017-09-02] MEDS ORDERED: MORPHINE SULFATE 2 MG/ML INJ IV PUSH PRN (17:15)
[2017-09-02] MEDS: DOCUSATE SODIUM 100 MG CAP PO SCH (20:01)
[2017-09-02] MEDS: FERROUS SULFATE 325 MG (65 MG ELEMENTAL IRON) TAB PO SCH (20:01)
[2017-09-02] MEDS: traMADol HCL 50 MG TAB PO PRN (20:06)
[2017-09-02 20:11] VITALS: BP 156/85; PULSE 73; RESP 22; TEMP 96.3; O2SAT 95
[2017-09-02] MEDS ORDERED: diphenhydrAMINE HCL 50 MG CAP PO ONE (20:15)
[2017-09-02] MEDS: SENNOSIDES 8.6 MG TAB PO PRN (20:17)
[2017-09-02] MEDS ORDERED: GABAPENTIN 300 MG CAP PO SCH (21:00)
[2017-09-03 00:11] VITALS: BP 157/81; PULSE 63; RESP 20; TEMP 97.8; O2SAT 96
[2017-09-03] MEDS: SODIUM CHLOR 0.9% 1000 ML INJ 1,000 ML IV SCH (05:50)
[2017-09-03] MEDS: HEPARIN SODIUM - SQ 10,000 UNITS/ML VIAL SQ SCH ×3 (05:50→21:09)
[2017-09-03] MEDS: INSULIN ASPART SUPPLEMENTAL SCALE SQ SCH ×4 (08:00→21:09)
[2017-09-03] MEDS: SODIUM CHLORIDE 0.9% FLUSH 10 ML FLUSH IV FLUSH SCH ×2 (09:00→21:00)
[2017-09-03 09:16] VITALS: BP 138/83; PULSE 66; RESP 19; TEMP 95.9; O2SAT 93
[2017-09-03] MEDS: FERROUS SULFATE 325 MG (65 MG ELEMENTAL IRON) TAB PO SCH ×2 (09:25→21:08)
[2017-09-03] MEDS: DOCUSATE SODIUM 100 MG CAP PO SCH ×2 (09:25→21:08)
[2017-09-03] MEDS: traMADol HCL 50 MG TAB PO PRN (09:26)
--- NOTE | 2017-09-03 10:40 | PD.PN.STU ---
Subjective Remarks POD 1 s/p I&D R foot with partial 5th ray amputation and bone biopsy for diabetic rt foot and osteomyelitis. Pt reports improved sleep since he was able to take his full dose of gabapentin , but still c/o timing issues and would like to receive the gabapentin at 6pm. Denies HAWK, CP, SOB, fever, chills, lower extremity pain. Objective Vitals Vital Signs Date Time Temp Pulse Resp B/P (MAP) Pulse Ox O2 Delivery O2 Flow Rate FiO2 09/03/17 09:16 95.9 66 19 138/83 (101) 93 09/03/17 00:11 97.8 63 20 157/81 (106) 96 09/02/17 20:11 96.3 73 22 156/85 (108) 95 09/02/17 16:00 97.7 75 18 155/85 (108) 93 09/02/17 12:00 97.9 70 18 115/82 (93) 93 09/02/17 10:45 67 18 132/59 (83) 96 Nasal Cannula 3 I/O 09/02/17 09/02/17 09/02/17 09/03/17 09/03/17 09/03/17 07:00 15:00 23:00 07:00 15:00 23:00 Intake Total 1000 ml 1150 ml 1002 ml 875 ml Output Total 750 ml Balance 250 ml 1150 ml 1002 ml 875 ml IV Total 1000 ml 1150 ml 1002 ml 875 ml Output Urine Total 750 ml # Voids 0 Result Diagram: 09/02/17 0656 09/02/17 0656 Other Results GENERAL: well-developed, obese male who was in no acute distress SKIN: Warm and dry. HEAD: Normocephalic. EYES: No scleral icterus. No injection or drainage. NECK: Supple, trachea midline. No JVD or lymphadenopathy. CARDIOVASCULAR: Regular rate and rhythm without murmurs, gallops, or rubs. RESPIRATORY: Breath sounds equal bilaterally. No accessory muscle use. GASTROINTESTINAL: Abdomen soft, non-tender, nondistended. MUSCULOSKELETAL: Rt foot bandage and boot. Rt leg has improved edema. No cyanosis, erythema, or edema in all other extremities Procedures Last Impressions Foot X-Ray 09/02/17 0000 Signed Impressions: Service Date/Time: Saturday, September 02, 2017 09:57 - CONCLUSION: 1. Interval resection of the fifth digit. Jesus Ferreira MD Chest X-Ray 09/01/17 1306 Signed Impressions: Service Date/Time: Friday, September 01, 2017 14:08 - CONCLUSION: No acute disease. Juancarlos Friedman MD Foot MRI 09/01/17 0000 Signed Impressions: Service Date/Time: Friday, September 01, 2017 16:00 - CONCLUSION: Extensive cellulitis. Soft tissue air. Findings worrisome for osteomyelitis in the fifth digit. Juancarlos Friedman MD A/P Assessment and Plan (1) Abscess of right foot including toes Cutaneous abscess of right foot, IV Antibiotics (vanc/zosyn) MRI Foot worrisome for osteomyelitis Podiatry #1 status post fifth ray resection , follow-up wound care with podiatry (2) Leukocytosis, improved (3) Anemia likely chronic disease and iron deficiency, continue iron (4) Hyperkalemia follow trend replace as needed (5) Headache chronic, Tylenol as needed (6) DM (diabetes mellitus), poorly controlled patient on tresiba, cont home med ADA diet, accuchecks hg a 1 c 0.9 (7) neuropathy, continue Neurontin dvt ppx Heparin Q8 Steph Madrid M3 Sep 03, 2017 10:40 Concepcion Vaca MD Sep 03, 2017 11:56
[2017-09-03 12:00] VITALS: BP 141/79; PULSE 63; RESP 17; TEMP 96.8; O2SAT 96
--- NOTE | 2017-09-03 12:53 | PD.POD ---
Subjective Pain score: 2 Remarks Doing well, wants to be home by sunday to watch football. Past Med/Surg/Social History Social History Smoking Status: Never Smoker Objective Vital Signs Vital Signs Date Time Temp Pulse Resp B/P (MAP) Pulse Ox O2 Delivery O2 Flow Rate FiO2 09/03/17 10:26 20 09/03/17 09:16 95.9 66 19 138/83 (101) 93 09/03/17 00:11 97.8 63 20 157/81 (106) 96 09/02/17 20:11 96.3 73 22 156/85 (108) 95 09/02/17 16:00 97.7 75 18 155/85 (108) 93 Coded Allergies: *MDRO Multi-Drug Resistant Organism (Verified Allergy, Unknown, 09/02/17) Hx MRSA 2011 Neck Wound Medications and IVs Administered Medications Medications (Trade) Dose Ordered Sig/Pamela Route PRN Reason Start Time Stop Time Status Last Admin Dose Admin Sodium Chloride (NS Flush) 2 ml BID IV FLUSH 09/01/17 21:00 09/03/17 09:00 Heparin Sodium (Porcine) (Heparin Inj) 5,000 units Q8HR SQ 09/01/17 15:45 09/03/17 05:50 Sennosides (Senokot) 17.2 mg Q12H PRN PO MODERATE - SEVERE CONSTIPATION 09/01/17 15:45 09/02/17 20:17 Insulin Aspart (NovoLOG SUPPLEMENTAL SCALE) 1 ACHS SLIDING SCALE SQ 09/01/17 17:00 09/02/17 20:14 Tramadol HCl (Ultram) 50 mg Q4H PRN PO PAIN SCALE 1 TO 10 09/01/17 15:45 09/03/17 09:26 Ferrous Sulfate (Ferrous Sulfate) 325 mg BID PO 09/02/17 21:00 09/03/17 09:25 Docusate Sodium (Colace) 100 mg BID PO 09/02/17 21:00 09/03/17 09:25 Other Results Laboratory Tests Test 09/01/17 13:53 09/02/17 06:56 White Blood Count 16.4 TH/MM3 14.3 TH/MM3 Red Blood Count 4.19 MIL/MM3 3.79 MIL/MM3 Hemoglobin 11.8 GM/DL 10.6 GM/DL Hematocrit 35.6 % 32.3 % Mean Corpuscular Volume 84.9 FL 85.4 FL Mean Corpuscular Hemoglobin 28.1 PG 27.9 PG Mean Corpuscular Hemoglobin Concent 33.1 % 32.6 % Red Cell Distribution Width 12.6 % 12.5 % Platelet Count 248 TH/MM3 252 TH/MM3 Mean Platelet Volume 8.6 FL 8.7 FL Neutrophils (%) (Auto) 77.7 % 76.6 % Lymphocytes (%) (Auto) 11.1 % 15.1 % Monocytes (%) (Auto) 7.5 % 6.3 % Eosinophils (%) (Auto) 0.8 % 1.6 % Basophils (%) (Auto) 2.9 % 0.4 % Neutrophils # (Auto) 12.8 TH/MM3 10.9 TH/MM3 Lymphocytes # (Auto) 1.8 TH/MM3 2.2 TH/MM3 Monocytes # (Auto) 1.2 TH/MM3 0.9 TH/MM3 Eosinophils # (Auto) 0.1 TH/MM3 0.2 TH/MM3 Basophils # (Auto) 0.5 TH/MM3 0.1 TH/MM3 CBC Comment DIFF FINAL DIFF FINAL Differential Comment Laboratory Tests Test 09/01/17 13:53 09/02/17 06:56 Blood Urea Nitrogen 13 MG/DL 14 MG/DL Creatinine 0.90 MG/DL 0.79 MG/DL Random Glucose 129 MG/DL 98 MG/DL Total Protein 7.6 GM/DL Albumin 2.5 GM/DL Calcium Level 9.0 MG/DL 8.7 MG/DL Alkaline Phosphatase 109 U/L Aspartate Amino Transf (AST/SGOT) 7 U/L Alanine Aminotransferase (ALT/SGPT) 10 U/L Total Bilirubin 0.6 MG/DL Sodium Level 138 MEQ/L 141 MEQ/L Potassium Level 3.2 MEQ/L 3.5 MEQ/L Chloride Level 101 MEQ/L 106 MEQ/L Carbon Dioxide Level 29.4 MEQ/L 26.8 MEQ/L Anion Gap 8 MEQ/L 8 MEQ/L Estimat Glomerular Filtration Rate 87 ML/MIN 101 ML/MIN Hemoglobin A1c 8.9 % Lactic Acid Level 1.3 mmol/L Magnesium Level 2.2 MG/DL Iron Level 20 MCG/DL Total Iron Binding Capacity 221 MCG/DL Percent Iron Saturation 9.0 % Thyroid Stimulating Hormone 3rd Gen 0.402 uIU/ML Microbiology Date/Time Source Procedure Growth Status 09/01/17 13:53 Blood Peripheral Aerobic Blood Culture - Preliminary NO GROWTH IN 2 DAYS Resulted 09/01/17 13:53 Blood Peripheral Anaerobic Blood Culture - Preliminary NO GROWTH IN 2 DAYS Resulted 09/01/17 13:15 Blood Peripheral Aerobic Blood Culture - Preliminary NO GROWTH IN 2 DAYS Resulted 09/01/17 13:15 Blood Peripheral Anaerobic Blood Culture - Preliminary NO GROWTH IN 2 DAYS Resulted 09/02/17 08:35 Abscess Foot Fungal Smear - Final NO FUNGAL ELEMENTS SEEN. Resulted 09/02/17 08:35 Abscess Foot Fungal Culture Pending Resulted 09/02/17 08:35 Abscess Foot Acid Fast Stain Pending Received 09/02/17 08:35 Abscess Foot Mycobacterial Culture Pending Received 09/02/17 08:35 Abscess Foot Gram Stain - Final Resulted 09/02/17 08:35 Wound Culture - Preliminary Group B Beta Strep Resulted 09/01/17 13:15 Wound Foot Gram Stain - Final Resulted 09/01/17 13:15 Wound Culture - Preliminary Group B Beta Strep Gram Negative Octavio Mixed Anaerobes Resulted Last 72 hours Impressions Foot X-Ray 09/02/17 0000 Signed Impressions: Service Date/Time: Saturday, September 02, 2017 09:57 - CONCLUSION: 1. Interval resection of the fifth digit. Jesus Ferreira MD Foot X-Ray 09/01/17 1313 Signed Impressions: Service Date/Time: Friday, September 01, 2017 14:09 - CONCLUSION: Soft tissue swelling and soft tissue air as well as bony findings worrisome for osteomyelitis as described Juancarlos Friedman MD Chest X-Ray 09/01/17 1306 Signed Impressions: Service Date/Time: Friday, September 01, 2017 14:08 - CONCLUSION: No acute disease. Juancarlos Friedman MD Foot MRI 09/01/17 0000 Signed Impressions: Service Date/Time: Friday, September 01, 2017 16:00 - CONCLUSION: Extensive cellulitis. Soft tissue air. Findings worrisome for osteomyelitis in the fifth digit. Juancarlos Friedman MD Path from surgery is pending Physical Exam Remarks Right LE: lateral foot with loose incision with purple wound edges along the 5th Ray absent 5th digit metatarsal, moderate edema and swelling of the foot, foot is warm, decreased sensation below the knee. Partial thickness ulcer of distal hallux no redness. Assessment & Plan Diagnosis: (1) Abscess of right foot including toes ICD Codes: L02.611 - Cutaneous abscess of right foot A/P SP 5th digits amp and metatarsal 10-8. Appears improving. Wound needs to declare for margin, will need repeat debridement and wound vac, possible weds, continue ABX. Length of ABX depends on path margin results ID? PICC? Vinny Meléndez DPM Sep 03, 2017 12:53
[2017-09-03 16:00] VITALS: BP 160/80; PULSE 73; RESP 18; TEMP 98.6; O2SAT 95
[2017-09-03] MEDS: GABAPENTIN 300 MG CAP PO SCH ×2 (17:31→21:08)
[2017-09-03 20:00] VITALS: BP 162/91; PULSE 69; RESP 20; TEMP 98.1; O2SAT 96
[2017-09-04] VITALS: BP 142/65; PULSE 70; RESP 20; TEMP 97.7; O2SAT 97
[2017-09-04] MEDS: HEPARIN SODIUM - SQ 10,000 UNITS/ML VIAL SQ SCH ×3 (05:56→21:29)
[2017-09-04 08:00] VITALS: BP 183/90; PULSE 79; RESP 18; TEMP 99.1; O2SAT 94
[2017-09-04] MEDS ORDERED: MAGNESIUM HYDROXIDE SUSP 30 ML CUP PO PRN (08:30)
[2017-09-04] MEDS: DOCUSATE SODIUM 100 MG CAP PO SCH ×2 (08:32→21:29)
[2017-09-04] MEDS: FERROUS SULFATE 325 MG (65 MG ELEMENTAL IRON) TAB PO SCH ×2 (08:33→21:29)
[2017-09-04] MEDS: SODIUM CHLORIDE 0.9% FLUSH 10 ML FLUSH IV FLUSH SCH ×2 (08:33→21:00)
[2017-09-04] MEDS: traMADol HCL 50 MG TAB PO PRN ×3 (08:33→21:34)
[2017-09-04] MEDS: INSULIN ASPART SUPPLEMENTAL SCALE SQ SCH ×4 (08:40→21:37)
--- NOTE | 2017-09-04 11:25 | HHI.PR ---
Subjective Remarks Patient seen in follow-up for right diabetic foot infection/osteomyelitis. Tolerating antibiotics and pain is tolerated well due to severe neuropathy Likely back to [facility] for podiatry in a.m. Objective Vitals Vital Signs Date Time Temp Pulse Resp B/P (MAP) Pulse Ox O2 Delivery O2 Flow Rate FiO2 09/04/17 08:00 99.1 79 18 183/90 (121) 94 09/04/17 00:00 97.7 70 20 142/65 (90) 97 09/03/17 20:00 98.1 69 20 162/91 (114) 96 09/03/17 16:00 98.6 73 18 160/80 (106) 95 09/03/17 12:00 96.8 63 17 141/79 (99) 96 I/O 09/03/17 09/03/17 09/03/17 09/04/17 09/04/17 09/04/17 07:00 15:00 23:00 07:00 15:00 23:00 Intake Total 875 ml 1800 ml 240 ml Balance 875 ml 1800 ml 240 ml Intake Oral 240 ml IV Total 875 ml 1800 ml # Voids 2 # Bowel Movements 0 Result Diagram: 09/02/17 0656 09/02/17 0656 Objective Remarks GENERAL: This is a well-nourished, well-developed patient, in no apparent distress. CARDIOVASCULAR: Regular rate and rhythm without murmurs, gallops, or rubs. RESPIRATORY: Clear to auscultation. Breath sounds equal bilaterally. No wheezes , rales, or rhonchi. GASTROINTESTINAL: Abdomen soft, non-tender, nondistended. Normal active bowel sounds MUSCULOSKELETAL: Right foot dressed postoperatively, Extremities without clubbing, cyanosis, or edema. NEURO: Alert & Oriented x4 to person, place, time, situation. Moves all ext x4 A/P Problem List: (1) Abscess of right foot including toes ICD Code: L02.611 - Cutaneous abscess of right foot Plan: Continue current IV Antibiotics (vanc/zosyn), group B strep on early superficial cultures, follow deep surgical cultures and blood cultures for further antibiotic management MRI Foot consistent with abscess and osteomyelitis Status post fifth ray resection Will follow podiatry for probable surgical reevaluation tomorrow mixed chintan on deep cultures , pending eval per ID for antibiotic recommendations (2) Leukocytosis ICD Code: D72.829 - Elevated white blood cell count, unspecified Plan: Probably from infection improved (3) Anemia ICD Code: D64.9 - Anemia, unspecified Plan: Chronic and iron deficiency Po iron (4) Head ache ICD Code: R51 - Headache Plan: chronic, Tylenol as needed (5) DM (diabetes mellitus) ICD Code: E11.9 - Type 2 diabetes mellitus without complications Status: Chronic Plan: With neuropathy on gabapentin patient on tresiba, cont home med ADA diet accuchecks hg a 1 c 8.9 Assessment and Plan DVT prophylaxis with heparin Pain management w/ iv morphine Concepcion Vaca MD Sep 04, 2017 11:25
[2017-09-04 12:05] LABS: BLOOD, URINE TRACE (NEG); GLUCOSE,URINE NEG (NEG); KETONE, URINE NEG (NEG); NITRITE,URINE NEG (NEG); PH, URINE 5.5 (5.0-8.5)
[2017-09-04 12:20] LABS: COMMENT (UR) CULT NOT INDICATED; CULTURE IF INDICATED CULT NOT INDICATED; METHOD OF COLLECTION CLEAN CATCH; RBC, URINE 0-3 /hpf (0-3); SQUAMOUS EPITHELIAL CELL URINE 0-5 /hpf (0-5); URINE COLOR YELLOW (YELLW/STRAW)
[2017-09-04 13:19] VITALS: BP 183/99; PULSE 92; RESP 16; TEMP 98.1; O2SAT 92
[2017-09-04] MEDS ORDERED: cefTRIAXone INJ 2,000 MG in SODIUM CHLORIDE 0.9% INJ 100 ML IV SCH (16:00)
--- NOTE | 2017-09-04 16:12 | PD.POD ---
Subjective Pain score: 2 Remarks Doing well, wants to be home by sunday to watch football. Past Med/Surg/Social History Social History Smoking Status: Never Smoker Objective Vital Signs Vital Signs Date Time Temp Pulse Resp B/P (MAP) Pulse Ox O2 Delivery O2 Flow Rate FiO2 09/04/17 13:19 98.1 92 16 183/99 (127) 92 09/04/17 08:00 99.1 79 18 183/90 (121) 94 09/04/17 00:00 97.7 70 20 142/65 (90) 97 09/03/17 20:00 98.1 69 20 162/91 (114) 96 Coded Allergies: *MDRO Multi-Drug Resistant Organism (Verified Allergy, Unknown, 09/02/17) Hx MRSA 2011 Neck Wound Medications and IVs Administered Medications Medications (Trade) Dose Ordered Sig/Pamela Route PRN Reason Start Time Stop Time Status Last Admin Dose Admin Sodium Chloride (NS Flush) 2 ml BID IV FLUSH 09/01/17 21:00 09/04/17 08:33 Heparin Sodium (Porcine) (Heparin Inj) 5,000 units Q8HR SQ 09/01/17 15:45 09/04/17 05:56 Sennosides (Senokot) 17.2 mg Q12H PRN PO MODERATE - SEVERE CONSTIPATION 09/01/17 15:45 09/02/17 20:17 Insulin Aspart (NovoLOG SUPPLEMENTAL SCALE) 1 ACHS SLIDING SCALE SQ 09/01/17 17:00 09/04/17 12:20 Tramadol HCl (Ultram) 50 mg Q4H PRN PO PAIN SCALE 1 TO 10 09/01/17 15:45 09/04/17 08:33 Ferrous Sulfate (Ferrous Sulfate) 325 mg BID PO 09/02/17 21:00 09/04/17 08:33 Docusate Sodium (Colace) 100 mg BID PO 09/02/17 21:00 09/04/17 08:32 Gabapentin (Neurontin) 900 mg HS PO 09/03/17 18:00 09/03/17 21:08 Magnesium Hydroxide (Milk Of Magnesia Liq) 30 ml DAILY PRN PO for Severe Constipation 09/04/17 08:30 09/04/17 11:29 Other Results Microbiology Date/Time Source Procedure Growth Status 09/02/17 08:35 Abscess Foot Fungal Smear - Final NO FUNGAL ELEMENTS SEEN. Resulted 09/02/17 08:35 Abscess Foot Fungal Culture Pending Resulted 10 08:35 Abscess Foot Acid Fast Stain - Final NO ACID FAST BACILLI SEEN Resulted 09/02/17 08:35 Abscess Foot Mycobacterial Culture Pending Resulted 10 08:35 Abscess Foot Gram Stain - Final Complete 10 08:35 Wound Culture - Final Group B Beta Strep Mixed Anaerobes Complete Physical Exam Remarks Right LE: lateral foot with loose incision with purple wound edges along the 5th Ray absent 5th digit metatarsal, moderate edema and swelling of the foot, foot is warm, decreased sensation below the knee. Partial thickness ulcer of distal hallux no redness Assessment & Plan Diagnosis: (1) Abscess of right foot including toes ICD Codes: L02.611 - Cutaneous abscess of right foot A/P SP 5th digits amp and metatarsal 10-8. Appears to be no further necrosis, plan for debridement and wound vac tomorrow, awaiting margins to see in OM remains. Vinny Meléndez DPM Sep 04, 2017 16:12
--- NOTE | 2017-09-04 16:43 | MB ---
cc: TOMAS RUIZ MD DATE OF CONSULTATION: 09/04/2017 REQUESTING PHYSICIAN: Dr. Vaca. REASON FOR CONSULTATION: Diabetic foot infection. HISTORY OF PRESENT ILLNESS This is a 57-year-old white male with history of diabetes mellitus. The patient developed a wound at the lateral aspect of his right foot and was followed by a shrimp packer. He was seen by the shrimp packer last week. The patient states that he subsequently fell into a swimming pool which was loaded with algae and he went to see primary physician on Sunday which was 5 days ago. He was referred to the hospital for intravenous antibiotics. He was seen in the emergency department three days ago. The patient notes that the foot was swollen and painful and red. His white blood cell count was elevated at 16.4 in the emergency department. The culture was taken on 09/01 and it came back with mixed bacteria including group B beta strep, and gram-negative chip and mixed anaerobes. The patient received intravenous antibiotics in form of vancomycin and piperacillin/Tazobactam. That has been discontinued. After he received a dose in the emergency department. Culture with surgical procedure came back with Group B beta strep and mixed anaerobes. The patient underwent I&D of the foot. There was noted to be cellulitis along with abscess of the right foot and possibly osteomyelitis. The patient also had amputation of the right partial fifth ray. Pathology on the specimen is pending. The patient is in no acute distress. He is afebrile. He did have low grade fever of 100 degrees on 09/01. His white blood cell count last measured on 09/02 was 14.3. He reports no chills or sweats since the onset of this infection. An MRI of the foot on 09/01 showed extensive cellulitis and soft tissue; findings worrisome for osteomyelitis of the fifth osteomyelitis of the fifth digit. PAST MEDICAL HISTORY Diabetes mellitus. Diabetic neuropathy. Arthroscopic of the right knee. Posttraumatic stress disorder (survived [place] bombing). ALLERGIES NO KNOWN DRUG ALLERGIES. MEDICATIONS 1. Neurontin. 2. Ferrous sulfate. 3. Colace. 4. Milk of magnesia. 5. Ultram 6. Senokot 7. Subcutaneous Heparin 8. Supplemental Insulin. SOCIAL HISTORY No tobacco, occasional alcohol. No illicit drugs. FAMILY HISTORY: Noncontributory. REVIEW OF SYSTEMS CONSTITUTIONAL: No fever or chills. HEAD, EYES, EARS, NOSE, AND THROAT: No difficulty with visual blurring or diplopia. No nasal bleeding or drainage. No difficulty swallowing or throat soreness. NECK: No neck pain or swelling. CARDIOVASCULAR SYSTEM: Denies palpitation or chest pain. RESPIRATORY: No cough or shortness of breath. GASTROINTESTINAL: No nausea, vomiting, abdominal pain or diarrhea. GENITOURINARY: No urgency, frequency or dysuria. MUSCULOSKELETAL: No aches or pains of the muscle joints. INTEGUMENTARY: No skin rash or itching. NEUROLOGIC: Positive for headaches. PSYCHIATRIC: Psychiatric denies depression. PHYSICAL EXAMINATION IN GENERAL: This is a morbid obese male who is in no acute distress. He is awake and oriented. VITAL SIGNS: Temperature 98.1, BP 183/99, respirations 1692. HEAD, EYES, EARS, NOSE, AND THROAT: Head is atraumatic. Extraocular movements grossly intact, pupils reactive to light. No icterus. Oropharynx no visible lesions. NECK: Supple. No adenopathy. LUNGS: Clear breath sounds. HEART: Regular S1, S2, without murmurs, rubs or gallops. ABDOMEN: Bowel sounds present, obese, soft, nontender. RECTAL: Not performed. EXTREMITIES: No clubbing or cyanosis or edema. Right foot status post surgical incision and debridement. There is a lateral longitudinal incision along the lateral aspect of the right foot and there is redness around the incision. There are multiple sutures in place on the superficial skin at the lateral part of the foot at the dorsal aspect, he has denuded. There is slight serous drainage. The foot is swollen. NEUROLOGICALLY: No gross focal findings. PSYCHIATRIC: Psychiatric the patient calm and cooperative. LABORATORY DATA WBC 14.3, platelets 252, 76% neutrophils. Creatinine 0.79, estimated GFR 101, sodium 141. IMPRESSION 1. Diabetic wound infection with abscess of the right foot and cellulitis. Positive culture of group B beta strep and mixed anaerobes. 2. Possible osteomyelitis. Pathology report on the resected tissue is pending. 3. Patient status post partial fifth ray resection. RECOMMENDATIONS 1. Begin intravenous and ceftriaxone for group B strep. 2. Begin p.o. Flagyl to cover mixed anaerobes. 3. Monitor pathology of the wound sample. 4. Determination of antibiotic treatment and duration once the results of the pathology evaluation becomes available. 5. A PICC line will be decided depending on those results and depending on the duration of antibiotic treatment. Thank for this consultation. Tomas Ruiz MD FD/cailin /3:27 PM /4:19 PM IRENE
[2017-09-04] MEDS: metroNIDAZOLE 500 MG TAB PO SCH (17:15)
[2017-09-04 18:14] VITALS: BP 156/70; PULSE 64; RESP 16; TEMP 97.3; O2SAT 95
[2017-09-04] MEDS: SENNOSIDES 8.6 MG TAB PO PRN (18:15)
[2017-09-04 20:00] VITALS: BP 189/96; PULSE 67; RESP 20; TEMP 97.8; O2SAT 95
[2017-09-04] MEDS: GABAPENTIN 300 MG CAP PO SCH (21:29)
[2017-09-05] VITALS: BP 151/79; PULSE 67; RESP 20; TEMP 98; O2SAT 94
[2017-09-05] MEDS: metroNIDAZOLE 500 MG TAB PO SCH ×5 (00:15→23:04)
[2017-09-05] MEDS: HEPARIN SODIUM - SQ 10,000 UNITS/ML VIAL SQ SCH ×3 (05:16→22:15)
[2017-09-05 08:00] VITALS: BP 162/81; PULSE 67; RESP 18; TEMP 96.5; O2SAT 95
[2017-09-05] MEDS: INSULIN ASPART SUPPLEMENTAL SCALE SQ SCH ×4 (08:30→22:17)
[2017-09-05] MEDS: DOCUSATE SODIUM 100 MG CAP PO SCH ×2 (08:31→22:16)
[2017-09-05] MEDS: FERROUS SULFATE 325 MG (65 MG ELEMENTAL IRON) TAB PO SCH ×2 (08:31→22:16)
[2017-09-05] MEDS: SODIUM CHLORIDE 0.9% FLUSH 10 ML FLUSH IV FLUSH SCH ×2 (08:31→22:16)
[2017-09-05] MEDS ORDERED: PROPOFOL 200 MG/20 ML AMP IV ONE (12:00)
[2017-09-05] MEDS ORDERED: ONDANSETRON HCL 4 MG/2 ML VIAL IV PUSH ONE (12:00)
[2017-09-05] MEDS ORDERED: BUPIVACAINE HCL PF 0.25% 30 ML VIAL ONE (12:15)
[2017-09-05] MEDS ORDERED: POVIDONE IODINE 5% (ANTISEPSIS KIT) 4 APPLICATIONS EACH NARE PRN (12:30)
[2017-09-05] MEDS ORDERED: METOPROLOL TARTRATE 25 MG TAB PO PRN (12:30)
[2017-09-05] MEDS ORDERED: LACTATED RINGER'S 1000 ML IV PRN (12:30)
[2017-09-05] MEDS ORDERED: SODIUM CHLORID 0.9% 500 ML IV PRN (12:30)
[2017-09-05] MEDS ORDERED: CHLORHEXIDINE GLUCONATE 2 % 1 PACK (2 CLOTHS) TOPICAL PRN (12:30)
[2017-09-05] MEDS ORDERED: INSULIN HUMAN REGULAR 1,000 UNITS/10 ML VIAL SQ PRN (12:30)
--- NOTE | 2017-09-05 13:37 | HHI.PR ---
Immediate Post Op Note Procedure Date: Sep 05, 2017 Pre Op Diagnosis: Left 5th met OM ulcer Post Op Diagnosis: same Surgeon: Vinny Knight Bobtailer(s): scrub Procedure: Incision drainage debridement resection 5th metatarsal application of wound vac. Complications: none Specimen(s) removed: bone proximal 5th met margin- check for OM, deep bone cx for micro Estimated blood loss: less 30 mL Anesthesia: General Drains: None, Other Patient to: PACU Patient Condition: Good Implant/Devices: SEE IMPLANT LOG (if applicable) Date/Time of Procedure: SEE SURGICAL CARE RECORD Vinny KnightM Sep 05, 2017 13:37
[2017-09-05 13:50] VITALS: PULSE 73
[2017-09-05 16:00] VITALS: BP 162/83; PULSE 74; RESP 18; TEMP 97.7; O2SAT 91
[2017-09-05] MEDS: PIPERACIL-TAZO 3.375 GM PREMIX 50 ML IV SCH ×2 (17:30→22:15)
--- NOTE | 2017-09-05 18:04 | HHI.PR ---
Subjective Remarks No deterioration since last night. Patient himself says he feels good. Reports intact sensation in his right foot with no pain. Objective Vital Signs Date Time Temp Pulse Resp B/P (MAP) Pulse Ox O2 Delivery O2 Flow Rate FiO2 09/05/17 14:35 98.0 78 16 140/69 (92) 96 Room Air 09/05/17 14:20 78 16 119/61 (80) 94 Nasal Cannula 3 09/05/17 14:05 65 15 134/68 (90) 96 Nasal Cannula 3 09/05/17 13:50 98.0 68 14 151/69 (96) 94 Nasal Cannula 3 09/05/17 13:50 73 09/05/17 11:15 96.5 67 18 162/81 (108) 95 09/05/17 08:00 96.5 67 18 162/81 (108) 95 09/05/17 00:00 98.0 67 20 151/79 (103) 94 09/04/17 20:00 97.8 67 20 189/96 (127) 95 09/04/17 19:15 20 09/04/17 18:14 97.3 64 16 156/70 (98) 95 I/O 09/04/17 09/04/17 09/04/17 09/05/17 09/05/17 09/05/17 06:59 14:59 22:59 06:59 14:59 22:59 Intake Total 240 ml 1300 ml 480 ml 600 ml Output Total 800 ml Balance 240 ml 1300 ml 480 ml -200 ml Intake Oral 240 ml 1200 ml 480 ml IV Total 100 ml 600 ml Output Urine Total 800 ml # Voids 2 4 5 # Bowel Movements 0 1 0 Result Diagram: 09/02/17 0656 09/02/17 0656 Imaging Last Impressions Foot X-Ray 09/02/17 0000 Signed Impressions: Service Date/Time: Saturday, September 02, 2017 09:57 - CONCLUSION: 1. Interval resection of the fifth digit. Jesus Ferreira MD Chest X-Ray 09/01/17 1306 Signed Impressions: Service Date/Time: Friday, September 01, 2017 14:08 - CONCLUSION: No acute disease. Juancarlos Friedman MD Foot MRI 09/01/17 0000 Signed Impressions: Service Date/Time: Saturday, September 01, 2017 16:00 - CONCLUSION: Extensive cellulitis. Soft tissue air. Findings worrisome for osteomyelitis in the fifth digit. Juancarlos Friedman MD Objective Remarks Right foot in walking boot and postop dressing with drain, good color on feet, no cyanosis, clubbing or edema unlabored breathing A/P Assessment and Plan POD 1 - Incision drainage debridement resection 5th metatarsal application of wound vac. (1) Abscess of right foot including toes Cutaneous abscess of right foot, IV Antibiotics (vanc/zosyn) - anticipate transition to PICC line abx. Podiatry #2 status post fifth ray resection , follow-up wound care with podiatry (2) Anemia likely chronic disease and iron deficiency, continue iron (3) Hyperkalemia follow trend replace as needed (4) Headache chronic, Tylenol as needed (5) DM (diabetes mellitus), poorly controlled patient on tresiba, cont home med ADA diet, accuchecks hg a 1 c 0.9 (6) neuropathy, continue Neurontin dvt ppx Heparin Q8 Denys Huggins MD Sep 05, 2017 18:04
--- NOTE | 2017-09-05 18:39 | HHI.PR ---
Objective Vital Signs Date Time Temp Pulse Resp B/P (MAP) Pulse Ox O2 Delivery O2 Flow Rate FiO2 09/05/17 14:35 98.0 78 16 140/69 (92) 96 Room Air 09/05/17 14:20 78 16 119/61 (80) 94 Nasal Cannula 3 09/05/17 14:05 65 15 134/68 (90) 96 Nasal Cannula 3 09/05/17 13:50 98.0 68 14 151/69 (96) 94 Nasal Cannula 3 09/05/17 13:50 73 09/05/17 11:15 96.5 67 18 162/81 (108) 95 09/05/17 08:00 96.5 67 18 162/81 (108) 95 09/05/17 00:00 98.0 67 20 151/79 (103) 94 09/04/17 20:00 97.8 67 20 189/96 (127) 95 09/04/17 19:15 20 I/O 09/04/17 09/04/17 09/04/17 09/05/17 09/05/17 09/05/17 06:59 14:59 22:59 06:59 14:59 22:59 Intake Total 240 ml 1300 ml 480 ml 600 ml Output Total 800 ml Balance 240 ml 1300 ml 480 ml -200 ml Intake Oral 240 ml 1200 ml 480 ml IV Total 100 ml 600 ml Output Urine Total 800 ml # Voids 2 4 5 # Bowel Movements 0 1 0 Result Diagram: 09/02/17 0656 09/02/17 0656 Denys Huggins MD Sep 05, 2017 18:39
[2017-09-05 20:00] VITALS: BP 150/76; PULSE 72; RESP 20; TEMP 98.7; O2SAT 91
[2017-09-05] MEDS: GABAPENTIN 300 MG CAP PO SCH (22:16)
[2017-09-06] VITALS: BP 154/59; PULSE 76; RESP 18; TEMP 98.1; O2SAT 92
[2017-09-06] MEDS: metroNIDAZOLE 500 MG TAB PO SCH ×3 (04:58→16:44)
[2017-09-06] MEDS: PIPERACIL-TAZO 3.375 GM PREMIX 50 ML IV SCH ×3 (04:58→16:32)
[2017-09-06] MEDS: HEPARIN SODIUM - SQ 10,000 UNITS/ML VIAL SQ SCH ×3 (04:59→20:41)
[2017-09-06 08:00] VITALS: BP 133/71; PULSE 96; RESP 17; TEMP 98.1; O2SAT 94
[2017-09-06] MEDS: SODIUM CHLORIDE 0.9% FLUSH 10 ML FLUSH IV FLUSH SCH ×2 (08:59→20:41)
[2017-09-06] MEDS: FERROUS SULFATE 325 MG (65 MG ELEMENTAL IRON) TAB PO SCH ×2 (08:59→20:41)
[2017-09-06] MEDS: DOCUSATE SODIUM 100 MG CAP PO SCH ×2 (08:59→20:41)
[2017-09-06] MEDS: INSULIN ASPART SUPPLEMENTAL SCALE SQ SCH ×4 (09:10→20:40)
[2017-09-06 12:00] VITALS: BP 176/82; PULSE 69; RESP 22; TEMP 96; O2SAT 95
--- NOTE | 2017-09-06 13:22 | PD.POD ---
Subjective Pain score: 2 Remarks Doing well, wants to be home by sunday to watch football. Past Med/Surg/Social History Social History Smoking Status: Never Smoker Objective Vital Signs Vital Signs Date Time Temp Pulse Resp B/P (MAP) Pulse Ox O2 Delivery O2 Flow Rate FiO2 09/06/17 08:00 98.1 96 17 133/71 (91) 94 09/06/17 00:00 98.1 76 18 154/59 (90) 92 09/05/17 20:00 98.7 72 20 150/76 (100) 91 09/05/17 16:00 97.7 74 18 162/83 (109) 91 09/05/17 14:35 98.0 78 16 140/69 (92) 96 Room Air 09/05/17 14:20 78 16 119/61 (80) 94 Nasal Cannula 3 09/05/17 14:05 65 15 134/68 (90) 96 Nasal Cannula 3 09/05/17 13:50 98.0 68 14 151/69 (96) 94 Nasal Cannula 3 09/05/17 13:50 73 Coded Allergies: *MDRO Multi-Drug Resistant Organism (Verified Allergy, Unknown, 09/02/17) Hx MRSA 2011 Neck Wound Medications and IVs Administered Medications Medications (Trade) Dose Ordered Sig/Pamela Route PRN Reason Start Time Stop Time Status Last Admin Dose Admin Sodium Chloride (NS Flush) 2 ml BID IV FLUSH 09/01/17 21:00 09/06/17 08:59 Heparin Sodium (Porcine) (Heparin Inj) 5,000 units Q8HR SQ 09/01/17 15:45 09/06/17 12:10 Sennosides (Senokot) 17.2 mg Q12H PRN PO MODERATE - SEVERE CONSTIPATION 09/01/17 15:45 09/04/17 18:15 Insulin Aspart (NovoLOG SUPPLEMENTAL SCALE) 1 ACHS SLIDING SCALE SQ 09/01/17 17:00 09/06/17 12:10 Tramadol HCl (Ultram) 50 mg Q4H PRN PO PAIN SCALE 1 TO 10 09/01/17 15:45 09/04/17 21:34 Ferrous Sulfate (Ferrous Sulfate) 325 mg BID PO 09/02/17 21:00 09/06/17 08:59 Docusate Sodium (Colace) 100 mg BID PO 09/02/17 21:00 09/06/17 08:59 Gabapentin (Neurontin) 900 mg HS PO 09/03/17 18:00 09/05/17 22:16 Magnesium Hydroxide (Milk Of Magnesia Liq) 30 ml DAILY PRN PO for Severe Constipation 09/04/17 08:30 09/04/17 11:29 Metronidazole (Flagyl) 500 mg Q6HR PO 09/04/17 18:00 09/06/17 12:05 Lactated Ringer's 1,000 ml @ 30 mls/hr Q24H PRN IV SEE LABEL COMMENTS 09/05/17 12:30 09/08/17 12:29 09/05/17 12:10 Piperacillin Sod/ Tazobactam Sod 50 ml @ 100 mls/hr Q6H IV 09/05/17 16:00 09/06/17 09:10 Other Results Date/Time Source Procedure Growth Status 09/05/17 14:10 Wound Foot Fungal Smear - Final NO FUNGAL ELEMENTS SEEN. Resulted 09/05/17 14:10 Wound Foot Fungal Culture Pending Resulted 09/05/17 14:10 Wound Foot Acid Fast Stain Pending Received 09/05/17 14:10 Wound Foot Mycobacterial Culture Pending Received 09/05/17 14:10 Wound Foot Gram Stain - Final Resulted 09/05/17 14:10 Wound Foot Wound Culture Pending Resulted Bone pending, attempting new margin Physical Exam Remarks Right LE: lateral foot with wound vac intact foot is warm good CFT to digits Assessment & Plan Diagnosis: (1) Abscess of right foot including toes ICD Codes: L02.611 - Cutaneous abscess of right foot (2) Osteomyelitis of ankle or foot, right, acute ICD Codes: M86.171 - Other acute osteomyelitis, right ankle and foot A/P SP 5th digits amp and metatarsal 10-8, 10-11. Wound vac order in chart, recommend IV ABX with PICC for atleast 2 weeks, we can follow new bone margin out pt and if not clear extend ABX to 8 weeks. Once ABX and Wound vac arranged, ok to DC per podiatry at this point. Vinny Meléndez DPM Sep 06, 2017 13:22
--- NOTE | 2017-09-06 16:41 | HHI.IDPN ---
Note Infectious Disease Note Patient has no complaints. afebrile. Went for debridement this am. PAST MEDICAL HISTORY Diabetes mellitus. Diabetic neuropathy. Arthroscopic of the right knee. Posttraumatic stress disorder (survived [place] bombing). ALLERGIES NO KNOWN DRUG ALLERGIES. ANTIBIOTICS: Zosyn. Flagyl. SOCIAL HISTORY No tobacco, occasional alcohol. No illicit drugs. FAMILY HISTORY: Noncontributory. OBJECTIVE: Vital Signs Date Time Temp Pulse Resp B/P (MAP) Pulse Ox O2 Delivery O2 Flow Rate FiO2 09/06/17 12:00 96.0 69 22 176/82 (113) 95 09/06/17 08:00 98.1 96 17 133/71 (91) 94 09/06/17 00:00 98.1 76 18 154/59 (90) 92 09/05/17 20:00 98.7 72 20 150/76 (100) 91 Microbiology Date/Time Source Procedure Growth Status 09/05/17 14:10 Wound Foot Fungal Smear - Final NO FUNGAL ELEMENTS SEEN. Resulted 09/05/17 14:10 Wound Foot Fungal Culture Pending Resulted 09/05/17 14:10 Wound Foot Acid Fast Stain Pending Received 09/05/17 14:10 Wound Foot Mycobacterial Culture Pending Received 09/05/17 14:10 Wound Foot Gram Stain - Final Resulted 09/05/17 14:10 Wound Foot Wound Culture - Preliminary NO GROWTH IN 24 HOURS. Resulted PHYSICAL EXAMINATION GENERAL: This is a morbid obese male who is in no acute distress. He is awake and oriented. HEAD, EYES, EARS, NOSE, AND THROAT: Head is atraumatic. Extraocular movements grossly intact, pupils reactive to light. No icterus. Oropharynx no visible lesions. NECK: Supple. No adenopathy. LUNGS: Clear breath sounds. HEART: Regular S1, S2, without murmurs, rubs or gallops. EXTREMITIES: No clubbing or cyanosis or edema. Right foot status post surgical incision and debridement. Dressing and wound vac in place. NEUROLOGICALLY: No gross focal findings. PSYCHIATRIC: Calm and cooperative. IMPRESSION 1. Diabetic wound infection with abscess of the right foot and cellulitis. Positive culture of group B beta strep and mixed anaerobes. 2. Acute osteomyelitis on Pathology. 3. Patient status post partial fifth ray resection. RECOMMENDATIONS 1. IV ceftriaxone for group B strep. x 2 weeks. 2. Begin p.o. Flagyl to cover mixed anaerobes x 2 weeks. 3. PICC line. 4. Case management to arrange home antibiotics. Can discharge once above arranged. Follow up with podiatry. Sigifredo Ruiz MD Sep 06, 2017 16:41
--- NOTE | 2017-09-06 16:47 | HHI.FF ---
Infusion Therapy Location of Infusion Therapy: Home [facility] Care IV Infusion Order Patient Information Patient Weight 153.4 kg Diagnosis: (1) Cellulitis and abscess of foot (2) Osteomyelitis of ankle or foot, right, acute Coded Allergies: *MDRO Multi-Drug Resistant Organism (Verified Allergy, Unknown, 09/02/17) Hx MRSA 2011 Neck Wound Administer Medication Ceftriaxone 2 grams IV q 24 hours Stop Treatment: Sep 20, 2017 Additional Information Venous access: PICC Line Additional Instructions [x] Peripheral flush and dressing changes per protocol [x] Implanted port and central online communications specialist: * Implanted port: 10 ml Normal Saline followed by 5 ml Heparin 100 units/ml Heparin flush after each use and monthly to maintain. [] May leave port accessed during therapy. [] May leave peripheral site accessed for duration of therapy. [x] If patient has SOB or respiratory distress, check oxygen saturation. If less than 90% or clinical signs of respiratory distress, administer oxygen at 2 L/min. via nasal cannula and notify physician. [x] Anaphylaxis/Reaction orders: * Stop infusion. * Keep IV line open with saline flush. * Notify physician. * Monitor vital signs every 15 minutes until symptoms resolve. * Check Oxygen saturation; Oxygen at 2 L/min. via nasal cannula if less than 90% or clinical signs of respiratory distress. * Administer diphenhydramine (Benadryl) 25 mg IV STAT, (unless patient has received as pre-med). May repeat once, if necessary. * Solu-Cortef 250 mg IVP over 30-60 seconds, use 100 mg vials for each dissolution. * Epinephrine (1mg/1 ml) 0.3 mg subcutaneously or IVP now with any signs of respiratory distress. * Check with physician for new additional pre-med orders if patient is re- challenged or re-treated. [x] May remove PICC line when treatment complete, after confirming with Physician. [x] If the patient is admitted to the hospital, the ED, or transferred via [facility] , complete transfer form including medication reconciliation order sheet. Laboratory Tests Weekly Labs: LFT's (Hepatic function test) Sigifredo Ruiz MD Sep 06, 2017 16:47
[2017-09-06] MEDS: cefTRIAXone INJ 2,000 MG in SODIUM CHLORIDE 0.9% INJ 100 ML IV SCH (17:19)
[2017-09-06 20:00] VITALS: BP 158/83; PULSE 66; RESP 20; TEMP 97.8; O2SAT 93
[2017-09-06] MEDS: GABAPENTIN 300 MG CAP PO SCH (20:41)
[2017-09-07] VITALS: BP 174/88; PULSE 66; RESP 18; TEMP 98; O2SAT 94
[2017-09-07] MEDS: metroNIDAZOLE 500 MG TAB PO SCH ×4 (01:01→17:40)
[2017-09-07 04:00] VITALS: BP 149/75; PULSE 65; RESP 20; TEMP 96.4; O2SAT 95
[2017-09-07] MEDS: HEPARIN SODIUM - SQ 10,000 UNITS/ML VIAL SQ SCH ×3 (05:19→20:59)
--- NOTE | 2017-09-07 06:59 | PD.POD ---
Subjective Pain score: 2 Remarks Doing well, wants to be home by sunday to watch football. Past Med/Surg/Social History Social History Smoking Status: Never Smoker Objective Vital Signs Vital Signs Date Time Temp Pulse Resp B/P (MAP) Pulse Ox O2 Delivery O2 Flow Rate FiO2 09/07/17 04:00 96.4 65 20 149/75 (99) 95 09/07/17 00:00 98.0 66 18 174/88 (116) 94 09/06/17 20:00 97.8 66 20 158/83 (108) 93 09/06/17 12:00 96.0 69 22 176/82 (113) 95 09/06/17 08:00 98.1 96 17 133/71 (91) 94 Coded Allergies: *MDRO Multi-Drug Resistant Organism (Verified Allergy, Unknown, 09/02/17) Hx MRSA 2012 Neck Wound Medications and IVs Administered Medications Medications (Trade) Dose Ordered Sig/Pamela Route PRN Reason Start Time Stop Time Status Last Admin Dose Admin Sodium Chloride (NS Flush) 2 ml BID IV FLUSH 09/01/17 21:00 09/06/17 20:41 Heparin Sodium (Porcine) (Heparin Inj) 5,000 units Q8HR SQ 09/01/17 15:45 09/07/17 05:19 Sennosides (Senokot) 17.2 mg Q12H PRN PO MODERATE - SEVERE CONSTIPATION 09/01/17 15:45 09/04/17 18:15 Insulin Aspart (NovoLOG SUPPLEMENTAL SCALE) 1 ACHS SLIDING SCALE SQ 09/01/17 17:00 09/06/17 20:40 Tramadol HCl (Ultram) 50 mg Q4H PRN PO PAIN SCALE 1 TO 10 09/01/17 15:45 09/04/17 21:34 Ferrous Sulfate (Ferrous Sulfate) 325 mg BID PO 09/02/17 21:00 09/06/17 20:41 Docusate Sodium (Colace) 100 mg BID PO 09/02/17 21:00 09/06/17 20:41 Gabapentin (Neurontin) 900 mg HS PO 09/03/17 18:00 09/06/17 20:41 Magnesium Hydroxide (Milk Of Magnesia Liq) 30 ml DAILY PRN PO for Severe Constipation 09/04/17 08:30 09/04/17 11:29 Metronidazole (Flagyl) 500 mg Q6HR PO 09/04/17 18:00 09/07/17 05:19 Lactated Ringer's 1,000 ml @ 30 mls/hr Q24H PRN IV SEE LABEL COMMENTS 09/05/17 12:30 09/08/17 12:29 09/05/17 12:10 Ceftriaxone Sodium 2000 mg/ Sodium Chloride 100 ml @ 200 mls/hr Q24H IV 09/06/17 17:00 09/06/17 17:19 Physical Exam Remarks Right LE: lateral foot with wound vac intact foot is warm good CFT to digits Assessment & Plan Diagnosis: (1) Abscess of right foot including toes ICD Codes: L02.611 - Cutaneous abscess of right foot (2) Osteomyelitis of ankle or foot, right, acute ICD Codes: M86.171 - Other acute osteomyelitis, right ankle and foot A/P SP 5th digits amp and metatarsal 10-8, 10-11. Wound vac order in chart, FU out pt. Sign off Vinny Meléndez DPM Sep 07, 2017 06:59
[2017-09-07 08:00] VITALS: BP 178/80; PULSE 61; RESP 20; TEMP 98.6; O2SAT 96
[2017-09-07] MEDS: DOCUSATE SODIUM 100 MG CAP PO SCH ×2 (08:52→20:58)
[2017-09-07] MEDS: SODIUM CHLORIDE 0.9% FLUSH 10 ML FLUSH IV FLUSH SCH ×2 (08:53→20:59)
[2017-09-07] MEDS: FERROUS SULFATE 325 MG (65 MG ELEMENTAL IRON) TAB PO SCH ×2 (08:53→20:58)
[2017-09-07] MEDS: INSULIN ASPART SUPPLEMENTAL SCALE SQ SCH ×4 (08:58→20:59)
--- NOTE | 2017-09-07 11:36 | HHI.PR ---
Subjective Remarks Late Entry for 09/06 evaluation: RN reports No deterioration since last night. Patient himself says he feels good. Reports intact sensation in his right foot with no pain. Discussed case with ID, patient is stable for discharge from podiatry standpoint with IV antibiotics and wound VAC once this is arranged. Objective Vital Signs Date Time Temp Pulse Resp B/P (MAP) Pulse Ox O2 Delivery O2 Flow Rate FiO2 09/07/17 08:00 98.6 61 20 178/80 (112) 96 09/07/17 04:00 96.4 65 20 149/75 (99) 95 09/07/17 00:00 98.0 66 18 174/88 (116) 94 09/06/17 20:00 97.8 66 20 158/83 (108) 93 09/06/17 12:00 96.0 69 22 176/82 (113) 95 I/O 09/06/17 09/06/17 09/06/17 09/07/17 09/07/17 09/07/17 07:00 15:00 23:00 07:00 15:00 23:00 Intake Total 1350 ml 590 ml Output Total 3200 ml 1200 ml Balance -1850 ml -610 ml Intake Oral 1200 ml 580 ml IV Total 150 ml 10 ml Output Urine Total 3200 ml 1200 ml # Voids 0 # Bowel Movements 0 0 Objective Remarks Right foot in walking boot and postop dressing with drain, good color on feet, no cyanosis, clubbing or edema unlabored breathing A/P Assessment and Plan s/p Incision drainage debridement resection 5th metatarsal application of wound vac. (1) Abscess of right foot including toes Cutaneous abscess of right foot, IV Antibiotics (vanc/zosyn) - PICC line order placed by ID along w/ abx as outpt order after discharge status post fifth ray resection , follow-up wound care with podiatry (2) Anemia likely chronic disease and iron deficiency, continue iron (3) Hyperkalemia follow trend replace as needed (4) Headache chronic, Tylenol as needed (5) DM (diabetes mellitus), poorly controlled patient on tresiba, cont home med ADA diet, accuchecks (6) neuropathy, continue Neurontin dvt ppx Heparin Q8 Denys Huggins MD Sep 07, 2017 11:36
[2017-09-07 12:00] VITALS: BP 182/81; PULSE 67; RESP 22; TEMP 96.8; O2SAT 94
[2017-09-07] MEDS: LISINOPRIL 5 MG TAB PO SCH (12:09)
[2017-09-07 16:00] VITALS: BP 182/81; PULSE 67; RESP 22; TEMP 96.8; O2SAT 94
[2017-09-07] MEDS: cefTRIAXone INJ 2,000 MG in SODIUM CHLORIDE 0.9% INJ 100 ML IV SCH (17:40)
--- NOTE | 2017-09-07 17:52 | HHI.PR ---
Subjective Remarks RN reports No deterioration since last night. Patient himself says he feels good and wants to go home by Sunday. No N/V. Reports intact sensation in his right foot with no pain. Discussed case with CM having some difficulty getting insurance approval for his outpatient antibiotics. Objective Vital Signs Date Time Temp Pulse Resp B/P (MAP) Pulse Ox O2 Delivery O2 Flow Rate FiO2 09/07/17 16:00 96.8 67 22 182/81 (114) 94 09/07/17 12:00 96.8 67 22 182/81 (114) 94 09/07/17 08:00 98.6 61 20 178/80 (112) 96 09/07/17 04:00 96.4 65 20 149/75 (99) 95 09/07/17 00:00 98.0 66 18 174/88 (116) 94 09/06/17 20:00 97.8 66 20 158/83 (108) 93 I/O 09/06/17 09/06/17 09/06/17 09/07/17 09/07/17 09/07/17 06:59 14:59 22:59 06:59 14:59 22:59 Intake Total 1350 ml 590 ml 900 ml Output Total 3200 ml 1200 ml 750 ml Balance -1850 ml -610 ml 150 ml Intake Oral 1200 ml 580 ml 900 ml IV Total 150 ml 10 ml Output Urine Total 3200 ml 1200 ml 750 ml # Voids 0 # Bowel Movements 0 0 1 Objective Remarks Right foot in walking boot and postop dressing with drain, good color on feet, no cyanosis, clubbing or edema unlabored breathing A/P Assessment and Plan s/p Incision drainage debridement resection 5th metatarsal application of wound vac. (1) Abscess of right foot including toes Cutaneous abscess of right foot, IV Antibiotics (vanc/zosyn) - PICC line placed today. status post fifth ray resection , follow-up wound care with podiatry (2) Anemia likely chronic disease and iron deficiency, continue iron (3) Hyperkalemia follow trend replace as needed (4) Headache chronic, Tylenol as needed (5) DM (diabetes mellitus), poorly controlled patient on tresiba, cont home med ADA diet, accuchecks (6) neuropathy, continue Neurontin dvt ppx Heparin Q8 Patient is stable for discharge from podiatry standpoint with IV antibiotics and wound VAC once this is arranged. Denys Huggins MD Sep 07, 2017 17:52
[2017-09-07] MEDS: GABAPENTIN 300 MG CAP PO SCH (20:58)
[2017-09-07 22:03] VITALS: BP 174/79; PULSE 61; RESP 16; TEMP 96.9; O2SAT 94
[2017-09-08 00:22] VITALS: BP 152/67; PULSE 60; RESP 18; TEMP 97; O2SAT 95
[2017-09-08] MEDS: metroNIDAZOLE 500 MG TAB PO SCH ×5 (00:30→23:23)
[2017-09-08] MEDS: HEPARIN SODIUM - SQ 10,000 UNITS/ML VIAL SQ SCH ×3 (05:36→21:50)
[2017-09-08 07:50] VITALS: BP 159/89; PULSE 59; RESP 20; TEMP 96.1; O2SAT 94
[2017-09-08] MEDS: INSULIN ASPART SUPPLEMENTAL SCALE SQ SCH ×4 (08:00→21:50)
[2017-09-08] MEDS: DOCUSATE SODIUM 100 MG CAP PO SCH ×2 (08:35→21:50)
[2017-09-08] MEDS: FERROUS SULFATE 325 MG (65 MG ELEMENTAL IRON) TAB PO SCH ×2 (08:35→21:50)
[2017-09-08] MEDS: LISINOPRIL 5 MG TAB PO SCH (08:36)
[2017-09-08 11:50] VITALS: BP 154/83; PULSE 59; RESP 20; TEMP 96; O2SAT 93
--- NOTE | 2017-09-08 14:30 | HHI.PR ---
Subjective Remarks RN reports No deterioration since last night. Patient is upset that we may not be able to get him out before the weekend. Denies any worsening foot pain otherwise. Objective Vital Signs Date Time Temp Pulse Resp B/P (MAP) Pulse Ox O2 Delivery O2 Flow Rate FiO2 09/08/17 11:50 96.0 59 20 154/83 (106) 93 09/08/17 07:50 96.1 59 20 159/89 (112) 94 09/08/17 04:23 09/08/17 00:22 97.0 60 18 152/67 (95) 95 09/07/17 22:03 96.9 61 16 174/79 (110) 94 09/07/17 16:00 96.8 67 22 182/81 (114) 94 I/O 09/07/17 09/07/17 09/07/17 09/08/17 09/08/17 09/08/17 06:59 14:59 22:59 06:59 14:59 22:59 Intake Total 590 ml 900 ml 100 ml 640 ml Output Total 1200 ml 750 ml 550 ml Balance -610 ml 150 ml 100 ml 90 ml Intake Oral 580 ml 900 ml 640 ml IV Total 10 ml 100 ml Output Urine Total 1200 ml 750 ml 550 ml # Voids 4 # Bowel Movements 0 1 1 Objective Remarks Right foot in postop dressing with drain, good color on feet, no cyanosis, clubbing or edema unlabored breathing A/P Assessment and Plan s/p Incision drainage debridement resection 5th metatarsal application of wound vac. (1) Abscess of right foot including toes Cutaneous abscess of right foot, IV Antibiotics (vanc/zosyn) - PICC line status post placement status post fifth ray resection , follow-up wound care with podiatry (2) Anemia likely chronic disease and iron deficiency, continue iron (3) Hyperkalemia follow trend replace as needed (4) Headache chronic, Tylenol as needed (5) DM (diabetes mellitus), poorly controlled patient on tresiba, cont home med ADA diet, accuchecks (6) neuropathy, continue Neurontin dvt ppx Heparin Q8 Patient is stable for discharge from podiatry standpoint with IV antibiotics and wound VAC once this is arranged. Discussed with case management, do not anticipate discharge until after weekend due to insurance issues. Denys Huggins MD Sep 08, 2017 14:30
[2017-09-08 15:46] VITALS: BP 166/82; PULSE 57; RESP 20; TEMP 96.5; O2SAT 93
--- NOTE | 2017-09-08 16:46 | MP ---
cc: MADAN WYATT DPM DATE OF SURGERY September 02, 2017 INDICATIONS The patient came to the emergency department with gas gangrene of the right foot and evidence of possible osteomyelitis of the right fifth metatarsal per MRI report. I discussed with the patient that with the necrosis of the skin in that area and foul odor that he may undergo removal of significant amount of tissue to the area and could possibly require a wound VAC in the future along with definite partial fifth ray amputation that needs to occur with incision and drainage of the right foot due to this current problem. I discussed with him that I will plan on taking a bone biopsy to confirm if all of the infection is removed at the time and that he will likely need further surgery in the future. DETAILS OF PROCEDURE The patient was seen in preop holding by myself, nursing staff and Anesthesia where the correct patient, side and site were all confirmed to be the right foot. The right foot was prepped and draped in normal sterile fashion. After following time-outs as per hospital protocol attention was directed to the right foot where there was noted to be a plantar wound sub fifth metatarsal head that communicated to a dorsal wound at about the level of the mid shaft fifth metatarsal area with necrotic tissue and significant foul odor. There was also noted to be erythema across the dorsal aspect of the foot with edema. An incision was made in order to encompass and disarticulate the right fifth toe of the metatarsophalangeal joint. All necrotic tissue was removed with a rongeur #15 blade going dorsally across to about the level of the fourth metatarsal and mid shaft area and the dorsal fourth metatarsophalangeal joint area and then plantarly along the distal fifth metatarsal. Irrigation was performed with 6 liters normal sterile saline with irrigant followed by partial closure with 2-0 nylon and packed open followed by 4x4s, ABD x2, cast padding and Joe to the right foot. Prior to partial closure there was noted to be no further necrotic tissue visualized at the time and there did appear to be healthy bleeding tissue. He tolerated the procedure and anesthesia well without complications and will evaluate in the coming days to determine if further surgery is required SHORT OPERATIVE NOTE SURGEON Madan Wyatt DPM VETERINARY VIROLOGIST Staff. PREOPERATIVE DIAGNOSIS 1. Osteomyelitis right fifth metatarsal. 2. Gas gangrene right foot. POSTOPERATIVE DIAGNOSIS 1. Osteomyelitis right fifth metatarsal. 2. Gas gangrene right foot. PROCEDURE I&D right foot with partial fifth ray amputation and bone biopsy. COMPLICATIONS None. ANESTHESIA General endotracheal anesthesia. ESTIMATED BLOOD LOSS 50 mL. SPECIMENS REMOVED 1. Culture right foot. 2. Partial fifth ray right foot. 3. Bone biopsy of right residual fifth metatarsal. CONDITION Stable to PACU. DISPOSITION Non-weightbearing right foot with examination of the wound in the coming days to determine when further surgery needs to occur. Will have daily packing changes ordered per nursing in the meantime. Madan LIVINGSTON /12:31 PM /4:31 PM
[2017-09-08] MEDS: cefTRIAXone INJ 2,000 MG in SODIUM CHLORIDE 0.9% INJ 100 ML IV SCH (17:57)
[2017-09-08 20:29] VITALS: BP 168/84; PULSE 57; RESP 20; TEMP 96.6; O2SAT 94
[2017-09-08] MEDS: SODIUM CHLORIDE 0.9% FLUSH 10 ML FLUSH IV FLUSH SCH ×2 (21:00→21:50)
[2017-09-08] MEDS: GABAPENTIN 300 MG CAP PO SCH (21:50)
[2017-09-09 00:21] VITALS: BP 153/86; PULSE 61; RESP 12; TEMP 96.4; O2SAT 95
[2017-09-09] MEDS: metroNIDAZOLE 500 MG TAB PO SCH ×3 (06:23→17:19)
[2017-09-09] MEDS: HEPARIN SODIUM - SQ 10,000 UNITS/ML VIAL SQ SCH ×3 (06:23→20:34)
[2017-09-09 07:50] VITALS: BP 164/93; PULSE 59; RESP 20; TEMP 96.8; O2SAT 94
[2017-09-09] MEDS: INSULIN ASPART SUPPLEMENTAL SCALE SQ SCH ×4 (08:00→20:42)
[2017-09-09] MEDS: LISINOPRIL 5 MG TAB PO SCH (08:40)
[2017-09-09] MEDS: FERROUS SULFATE 325 MG (65 MG ELEMENTAL IRON) TAB PO SCH ×2 (08:40→20:31)
[2017-09-09] MEDS: DOCUSATE SODIUM 100 MG CAP PO SCH ×2 (08:41→20:31)
[2017-09-09] MEDS: SODIUM CHLORIDE 0.9% FLUSH 10 ML FLUSH IV FLUSH SCH ×2 (08:41→20:32)
[2017-09-09 11:50] VITALS: BP 154/79; PULSE 61; RESP 20; TEMP 96.4; O2SAT 96
--- NOTE | 2017-09-09 14:02 | HHI.PR ---
Subjective Remarks RN reports No deterioration since last night except that dressing appeared to have interfered with wound VAC suctioning, dressing was switched and wound VAC started suctioning again appropriately. No other complaints from patient. Objective Vital Signs Date Time Temp Pulse Resp B/P (MAP) Pulse Ox O2 Delivery O2 Flow Rate FiO2 09/09/17 11:50 96.4 61 20 154/79 (104) 96 09/09/17 07:50 96.8 59 20 164/93 (116) 94 09/09/17 00:21 96.4 61 12 153/86 (108) 95 09/08/17 20:29 96.6 57 20 168/84 (112) 94 09/08/17 15:46 96.5 57 20 166/82 (110) 93 I/O 09/08/17 09/08/17 09/08/17 09/09/17 09/09/17 09/09/17 07:00 15:00 23:00 07:00 15:00 23:00 Intake Total 640 ml 200 ml Output Total 550 ml 1700 ml Balance 90 ml -1500 ml Intake Oral 640 ml 200 ml Output Urine Total 550 ml 1700 ml # Voids 1 1 # Bowel Movements 1 Objective Remarks Right foot in postop dressing with drain, good color on feet, no cyanosis, clubbing or edema unlabored breathing A/P Assessment and Plan s/p Incision drainage debridement resection 5th metatarsal application of wound vac. - Abscess of right foot including toes Cutaneous abscess of right foot, IV Antibiotics (vanc/zosyn) - PICC line status post placement status post fifth ray resection , follow-up wound care with podiatry - Anemia likely chronic disease and iron deficiency, continue iron - Hyperkalemia follow trend replace as needed - HTN - continue lisinopril - Headache chronic, Tylenol as needed - DM (diabetes mellitus), poorly controlled patient on tresiba, cont home med ADA diet, accuchecks - neuropathy, continue Neurontin dvt ppx Heparin Q8 Patient is stable for discharge from podiatry standpoint with IV antibiotics and wound VAC once this is arranged. Discussed with case management, do not anticipate discharge until at least tomorrow. Denys Huggins MD Sep 09, 2017 14:02
[2017-09-09 15:00] VITALS: BP 156/84; PULSE 53; RESP 20; TEMP 97; O2SAT 93
[2017-09-09] MEDS: cefTRIAXone INJ 2,000 MG in SODIUM CHLORIDE 0.9% INJ 100 ML IV SCH (17:19)
[2017-09-09] MEDS: GABAPENTIN 300 MG CAP PO SCH (20:31)
[2017-09-09] MEDS: traMADol HCL 50 MG TAB PO PRN (20:43)
[2017-09-09 20:57] VITALS: BP 159/93; PULSE 57; RESP 16; TEMP 96.7; O2SAT 96
[2017-09-10 00:11] VITALS: BP 152/63; PULSE 57; RESP 12; TEMP 97.8; O2SAT 98
[2017-09-10] MEDS: metroNIDAZOLE 500 MG TAB PO SCH ×4 (00:46→17:47)
[2017-09-10] MEDS: HEPARIN SODIUM - SQ 10,000 UNITS/ML VIAL SQ SCH ×3 (05:55→22:00)
[2017-09-10 08:00] VITALS: BP 140/84; PULSE 52; RESP 20; TEMP 96.8; O2SAT 94
[2017-09-10] MEDS: INSULIN ASPART SUPPLEMENTAL SCALE SQ SCH ×4 (08:00→22:00)
[2017-09-10] MEDS: SODIUM CHLORIDE 0.9% FLUSH 10 ML FLUSH IV FLUSH SCH ×2 (08:33→22:00)
[2017-09-10] MEDS: LISINOPRIL 5 MG TAB PO SCH (08:33)
[2017-09-10] MEDS: DOCUSATE SODIUM 100 MG CAP PO SCH ×2 (08:33→21:59)
[2017-09-10] MEDS: FERROUS SULFATE 325 MG (65 MG ELEMENTAL IRON) TAB PO SCH ×2 (08:33→21:59)
[2017-09-10 12:00] VITALS: BP 135/65; PULSE 61; RESP 20; TEMP 97.2; O2SAT 95
--- NOTE | 2017-09-10 12:34 | PD.POD ---
Subjective Pain score: 2 Remarks Doing well, wants to be home Past Med/Surg/Social History Social History Smoking Status: Never Smoker Objective Vital Signs Vital Signs Date Time Temp Pulse Resp B/P (MAP) Pulse Ox O2 Delivery O2 Flow Rate FiO2 09/10/17 08:00 96.8 52 20 140/84 (102) 94 09/10/17 00:11 97.8 57 12 152/63 (92) 98 09/09/17 20:57 96.7 57 16 159/93 (115) 96 09/09/17 15:00 97.0 53 20 156/84 (108) 93 Coded Allergies: *MDRO Multi-Drug Resistant Organism (Verified Allergy, Unknown, 09/02/17) Hx MRSA 2011 Neck Wound Medications and IVs Administered Medications Medications (Trade) Dose Ordered Sig/Pamela Route PRN Reason Start Time Stop Time Status Last Admin Dose Admin Sodium Chloride (NS Flush) 2 ml BID IV FLUSH 09/01/17 21:00 09/10/17 08:33 Heparin Sodium (Porcine) (Heparin Inj) 5,000 units Q8HR SQ 09/01/17 15:45 09/10/17 05:55 Sennosides (Senokot) 17.2 mg Q12H PRN PO MODERATE - SEVERE CONSTIPATION 09/01/17 15:45 09/04/17 18:15 Insulin Aspart (NovoLOG SUPPLEMENTAL SCALE) 1 ACHS SLIDING SCALE SQ 09/01/17 17:00 09/09/17 20:42 Tramadol HCl (Ultram) 50 mg Q4H PRN PO PAIN SCALE 1 TO 10 09/01/17 15:45 09/09/17 20:43 Ferrous Sulfate (Ferrous Sulfate) 325 mg BID PO 09/02/17 21:00 09/10/17 08:33 Docusate Sodium (Colace) 100 mg BID PO 09/02/17 21:00 09/10/17 08:33 Gabapentin (Neurontin) 900 mg HS PO 09/03/17 18:00 09/09/17 20:31 Magnesium Hydroxide (Milk Of Magnesia Liq) 30 ml DAILY PRN PO for Severe Constipation 09/04/17 08:30 09/04/17 11:29 Metronidazole (Flagyl) 500 mg Q6HR PO 09/04/17 18:00 09/10/17 12:16 Ceftriaxone Sodium 2000 mg/ Sodium Chloride 100 ml @ 200 mls/hr Q24H IV 09/06/17 17:00 09/09/17 17:19 Lisinopril (Prinivil) 5 mg DAILY PO 09/07/17 09:45 09/10/17 08:33 Physical Exam Remarks Right LE: lateral foot with wound vac intact foot is warm good CFT to digits Assessment & Plan Diagnosis: (1) Abscess of right foot including toes ICD Codes: L02.611 - Cutaneous abscess of right foot (2) Osteomyelitis of ankle or foot, right, acute ICD Codes: M86.171 - Other acute osteomyelitis, right ankle and foot A/P SP 5th digits amp and metatarsal 10-8, 10-11. Wound vac orders per nursing MWF, will Fu out ptVinny Alvarez DPM Sep 10, 2017 12:34
--- NOTE | 2017-09-10 13:19 | HHI.PR ---
Subjective Remarks RN reports No deterioration since last night. No other complaints from patient. Wanting to go home. Objective Vital Signs Date Time Temp Pulse Resp B/P (MAP) Pulse Ox O2 Delivery O2 Flow Rate FiO2 09/10/17 08:00 96.8 52 20 140/84 (102) 94 09/10/17 00:11 97.8 57 12 152/63 (92) 98 09/09/17 20:57 96.7 57 16 159/93 (115) 96 09/09/17 15:00 97.0 53 20 156/84 (108) 93 I/O 09/09/17 09/09/17 09/09/17 09/10/17 09/10/17 09/10/17 07:00 15:00 23:00 07:00 15:00 23:00 Intake Total 240 ml Output Total 150 ml 1300 ml 100 ml Balance -150 ml -1060 ml -100 ml Intake Oral 240 ml Output Urine Total 150 ml 1300 ml 100 ml # Voids 1 1 # Bowel Movements 0 Objective Remarks Right foot in postop dressing with drain, good color on feet, no cyanosis, clubbing or edema unlabored breathing A/P Assessment and Plan s/p Incision drainage debridement resection 5th metatarsal application of wound vac. SP 5th digits amp and metatarsal 10-8, 10-11. - Abscess of right foot including toes PICC line status post placement - Anemia likely chronic disease and iron deficiency, continue iron - Hyperkalemia follow trend replace as needed - HTN - continue lisinopril - Headache chronic, Tylenol as needed - DM (diabetes mellitus), poorly controlled patient on tresiba, cont home med ADA diet, accuchecks - neuropathy, continue Neurontin dvt ppx Heparin Q8 Patient is stable for discharge from podiatry standpoint with IV antibiotics and wound VAC once this is arranged. Discussed with case management, do not anticipate discharge until at least tomorrow. Denys Huggins MD Sep 10, 2017 13:19
[2017-09-10 16:00] VITALS: BP 165/74; PULSE 59; RESP 20; TEMP 96.4; O2SAT 92
--- NOTE | 2017-09-10 16:00 | HHI.FF ---
Face to Face Verification Diagnosis: (1) Osteomyelitis of ankle or foot, right, acute (2) Abscess of right foot including toes (3) DM (diabetes mellitus) Physical Therapy Order: Evaluate and Treat, Improve ambulation, Strength and gait training Home Health Nursing Order: Medical education Signs/symptoms of disease process Medication education-adverse effect Wound care and dressing changes (wound VAC management with changing Sunday, Sunday, Fridays) Nursing assessment with vital signs IV medication administration I have seen patient Maximilian Brice on 09/10/17. My clinical findings support the need for the requested home health care services because: Ltd mobility - disease progression Deconditioned w/ increased weakness Limited ability to care for self I certify that my clinical findings support that this patient is homebound because: Unsteady gait/balance Unsafe to leave home unassisted Rohit Ramos Sep 10, 2017 16:00
[2017-09-10] MEDS ORDERED: FERR325T20 PO (16:03)
[2017-09-10] MEDS ORDERED: LISI-519 PO (16:03)
[2017-09-10] MEDS ORDERED: METR-1 PO (16:03)
[2017-09-10] MEDS: cefTRIAXone INJ 2,000 MG in SODIUM CHLORIDE 0.9% INJ 100 ML IV SCH (17:47)
[2017-09-10 20:00] VITALS: BP 131/73; PULSE 66; RESP 20; TEMP 96.9; O2SAT 92
[2017-09-10] MEDS: GABAPENTIN 300 MG CAP PO SCH (21:59)
[2017-09-11] VITALS: BP 155/73; PULSE 66; RESP 20; TEMP 97.8; O2SAT 95
[2017-09-11] MEDS: metroNIDAZOLE 500 MG TAB PO SCH ×5 (01:17→22:47)
[2017-09-11 04:00] VITALS: BP 159/81; PULSE 61; RESP 20; TEMP 96.7; O2SAT 94
[2017-09-11] MEDS: HEPARIN SODIUM - SQ 10,000 UNITS/ML VIAL SQ SCH ×3 (05:52→22:47)
[2017-09-11 08:00] VITALS: BP 138/63; PULSE 71; RESP 17; TEMP 97.7; O2SAT 99
[2017-09-11] MEDS: INSULIN ASPART SUPPLEMENTAL SCALE SQ SCH ×4 (08:47→21:00)
[2017-09-11] MEDS: DOCUSATE SODIUM 100 MG CAP PO SCH ×2 (08:47→21:21)
[2017-09-11] MEDS: SODIUM CHLORIDE 0.9% FLUSH 10 ML FLUSH IV FLUSH SCH ×2 (08:47→21:21)
[2017-09-11] MEDS: LISINOPRIL 5 MG TAB PO SCH (08:47)
[2017-09-11] MEDS: FERROUS SULFATE 325 MG (65 MG ELEMENTAL IRON) TAB PO SCH ×2 (08:47→21:21)
[2017-09-11 12:00] VITALS: BP 156/78; PULSE 62; RESP 20; TEMP 96.7; O2SAT 94
--- NOTE | 2017-09-11 14:58 | HHI.PR ---
Subjective Remarks RN reports No deterioration since last night. No other complaints from patient. Wanting to go home. Objective Vital Signs Date Time Temp Pulse Resp B/P (MAP) Pulse Ox O2 Delivery O2 Flow Rate FiO2 09/11/17 12:00 96.7 62 20 156/78 (104) 94 09/11/17 08:00 97.7 71 17 138/63 (88) 99 09/11/17 04:00 96.7 61 20 159/81 (107) 94 09/11/17 00:00 97.8 66 20 155/73 (100) 95 09/10/17 20:00 96.9 66 20 131/73 (92) 92 09/10/17 16:00 96.4 59 20 165/74 (104) 92 I/O 09/10/17 09/10/17 09/10/17 09/11/17 09/11/17 09/11/17 07:00 15:00 23:00 07:00 15:00 23:00 Intake Total 825 ml 480 ml Output Total 100 ml 700 ml 600 ml Balance -100 ml 825 ml -220 ml -600 ml Intake Oral 825 ml 480 ml Output Urine Total 100 ml 700 ml 600 ml # Voids 3 2 # Bowel Movements 1 0 Objective Remarks Right foot in postop dressing with drain, good color on feet, no cyanosis, clubbing or edema unlabored breathing A/P Assessment and Plan s/p Incision drainage debridement resection 5th metatarsal application of wound vac. SP 5th digits amp and metatarsal 10-8, 10-11. - Abscess of right foot including toes PICC line status post placement - Anemia likely chronic disease and iron deficiency, continue iron - Hyperkalemia follow trend replace as needed - HTN - continue lisinopril - Headache chronic, Tylenol as needed - DM (diabetes mellitus), poorly controlled patient on tresiba, cont home med ADA diet, accuchecks - neuropathy, continue Neurontin dvt ppx Heparin Q8 Patient is stable for discharge from podiatry standpoint with IV antibiotics and wound VAC once this is arranged. Discussed with case management, do not anticipate discharge until at least tomorrow. Denys Huggins MD Sep 11, 2017 14:58
[2017-09-11 16:00] VITALS: BP 132/71; PULSE 79; RESP 20; TEMP 98.1; O2SAT 98
[2017-09-11] MEDS: cefTRIAXone INJ 2,000 MG in SODIUM CHLORIDE 0.9% INJ 100 ML IV SCH (17:42)
[2017-09-11 20:00] VITALS: BP 139/63; PULSE 60; RESP 20; TEMP 96.7; O2SAT 92
[2017-09-11] MEDS: GABAPENTIN 300 MG CAP PO SCH (21:21)
[2017-09-12] VITALS: BP 163/67; PULSE 61; RESP 18; TEMP 96.3; O2SAT 96
[2017-09-12 04:00] VITALS: BP 143/67; PULSE 61; RESP 18; TEMP 96.6; O2SAT 95
[2017-09-12] MEDS: HEPARIN SODIUM - SQ 10,000 UNITS/ML VIAL SQ SCH ×2 (06:09→12:16)
[2017-09-12] MEDS: metroNIDAZOLE 500 MG TAB PO SCH ×3 (06:09→18:23)
[2017-09-12 07:50] VITALS: BP 120/67; PULSE 58; RESP 20; TEMP 97.5; O2SAT 97
[2017-09-12 08:00] VITALS: BP 152/75; PULSE 63; RESP 14; TEMP 97.3; O2SAT 94
[2017-09-12] MEDS: DOCUSATE SODIUM 100 MG CAP PO SCH (08:47)
[2017-09-12] MEDS: LISINOPRIL 5 MG TAB PO SCH (08:47)
[2017-09-12] MEDS: FERROUS SULFATE 325 MG (65 MG ELEMENTAL IRON) TAB PO SCH (08:48)
[2017-09-12] MEDS: INSULIN ASPART SUPPLEMENTAL SCALE SQ SCH ×3 (08:49→17:17)
[2017-09-12] MEDS: SODIUM CHLORIDE 0.9% FLUSH 10 ML FLUSH IV FLUSH SCH (08:49)
[2017-09-12 12:00] VITALS: BP 135/70; PULSE 63; RESP 14; TEMP 97.2; O2SAT 94
--- NOTE | 2017-09-12 14:30 | HHI.DS ---
Discharge Summary Admission Date Sep 01, 2017 at 15:04 Discharge Date: Sep 12, 2017 Admitting Diagnosis CELLULITIS, ABCESS OF FOOT (1) Abscess of right foot including toes ICD Code: L02.611 - Cutaneous abscess of right foot (2) Leukocytosis ICD Code: D72.829 - Elevated white blood cell count, unspecified (3) Anemia ICD Code: D64.9 - Anemia, unspecified (4) Head ache ICD Code: R51 - Headache (5) DM (diabetes mellitus) ICD Code: E11.9 - Type 2 diabetes mellitus without complications Status: Chronic Procedures 09/02/17 I&D right foot with partial fifth ray amputation 09/05/17 Incision drainage debridement resection 5th metatarsal application of wound vac. Brief History - From Admission This patient is a pleasant 57-year-old gentleman with a 20 year history of diabetes mellitus who has had previous right foot infection which apparently cleared with the outpatient management. Over the last several days he's had increased swelling and erythema of the right lateral foot. He reports a blister in his shoes and that may have caused the problem skin changes. Many cases he's had 2 weeks of increased erythema, edema, pallor and pus in his right foot. He saw his outpatient junior qa analyst who gave him a course of oral antibiotics. He tried wearing a postop boot without success. He finally saw his primary doctor who urged him to come to the hospital however he decided to come on a different day which was today. Patient arrived to the emergency room with significant right foot infection and signs and symptoms of abscess and osteomyelitis on imaging. Patient was started on IV antibiotics. He has minimal pain due to severe diabetic neuropathy. He has no objective fever but has subjective fever and chills. Patient's been admitted to the hospital for severe diabetic foot infection. PE at Discharge GENERAL: This is a well-nourished, well-developed patient, in no apparent distress. CARDIOVASCULAR: Regular rate and rhythm without murmurs, gallops, or rubs. RESPIRATORY: Clear to auscultation. Breath sounds equal bilaterally. No wheezes , rales, or rhonchi. GASTROINTESTINAL: Abdomen soft, non-tender, nondistended. Normal active bowel sounds MUSCULOSKELETAL: Right foot dressed postoperatively, Extremities without clubbing, cyanosis, or edema. NEURO: Alert & Oriented x4 to person, place, time, situation. Moves all ext x4 Hospital Course Patient was admitted, started on IV antibiotics, underwent 2 operations for surgical debridement of abscess of the right foot, first one involving 5th metatarsal ray amputation of right foot. Patient tolerated procedures well. He had a prolonged hospital stay due to insurance issues and getting home care set up for both IV antibiotics at home as well as a wound VAC. Was eventually able to make such arrangements, patient had met maximum benefit from hospitalization and is clinically stable for discharge. Pt Condition on Discharge: Stable Discharge Disposition: Disch w/ Home Health Serv Discharge Time: <= 30 minutes Discharge Instructions Other Activity Instructions: nonweight bearing on right foot Follow up Referrals: PCP Follow-up - 1 Week Podiatry FU with Dr Zuniga in 1 weeks in Clinic New Medications: Ferrous Sulfate (Ferosul) 325 Mg (65 Mg Iron) Tablet 325 MG PO BID for anemia, #60 TAB Lisinopril (Lisinopril) 5 Mg Tab 5 MG PO DAILY for Blood Pressure Management, #30 TAB Metronidazole (Flagyl) 500 Mg Tab 500 MG PO Q6HR for Infection for 10 Days, TAB Continued Medications: Gabapentin (Gabapentin) 300 Mg Cap 300 MG PO TID, #90 CAP 0 Refills Insulin Aspart Inj (Novolog Inj) 1,000 Unit/10 Ml Vial 0 SQ DIRECTED for Blood Sugar Management, #10 ML 0 Refills Sliding Scale as directed. Insulin Degludec Inj (Tresiba Flextouch Pen Inj) 300 unit/3 ML Pen 80 UNITS SQ DAILY for Blood Sugar Management, #15 ML 0 Refills Tramadol (Tramadol) 50 Mg Tab 50 MG PO Q4H PRN for PAIN, TAB 0 Refills Denys Huggins MD Sep 12, 2017 14:30
[2017-09-12 16:16] LABS: INDIRECT BILIRUBIN 0.1 MG/DL (0.0-0.8); TOTAL BILIRUBIN ADULT 0.2 MG/DL (0.2-1.0)
[2017-09-12] MEDS: cefTRIAXone INJ 2,000 MG in SODIUM CHLORIDE 0.9% INJ 100 ML IV SCH (16:18)
== END 2017-09-12 19:21 | disposition home health service (06) | DRG 616 ==
LOC: PHED 12:07 → PHEDA 15:04 → PH3B 17:12
PROVIDERS: ADMIT Hospitalist; ATTEND Hospitalist
PROC: 0QBQ3ZX Excision of Right Toe Phalanx, Percutaneous Approach, Diagnostic (ICD-10-PCS; 2017-09-02)
PROC: 0Y6M0ZF Detachment at Right Foot, Partial 5th Ray, Open Approach (ICD-10-PCS; principal; 2017-09-02 08:06)
PROC: 05H633Z Insertion of Infusion Device into Left Subclavian Vein, Percutaneous Approach (ICD-10-PCS; 2017-09-07)
DX: E11.69 Type 2 diabetes mellitus with other specified complication (principal); A48.0 Gas gangrene; E11.40 Type 2 diabetes mellitus with diabetic neuropathy, unspecified; M86.171 Other acute osteomyelitis, right ankle and foot; L03.115 Cellulitis of right lower limb; L02.611 Cutaneous abscess of right foot; E11.621 Type 2 diabetes mellitus with foot ulcer; E87.5 Hyperkalemia; D50.9 Iron deficiency anemia, unspecified; G47.30 Sleep apnea, unspecified; R51 Headache; D63.8 Anemia in other chronic diseases classified elsewhere; I10 Essential (primary) hypertension; F43.10 Post-traumatic stress disorder, unspecified; M19.90 Unspecified osteoarthritis, unspecified site; Z23 Encounter for immunization; B95.1 Streptococcus, group B, as the cause of diseases classified elsewhere; Z79.4 Long term (current) use of insulin; Z86.14 Personal history of Methicillin resistant Staphylococcus aureus infection
CPT/HCPCS: 36569; 71010; 73630; 73720; 76937; 80048; 80053; 80076; 81001; 82948; 83036; 83540; 83550; 83605; 83735; 84443; 85025; 86403; 87015; 87040; 87070; 87077; 87102; 87116; 87185; 87186; 87205; 87206; 88304; 88305; 88307; 88311; 90686; 90732; 93005; 96365; 96367; A9579; J0696; J1644; J1815; J2270; J2405; J2543; J3010; J3370; J7030; J7040; J7120; L3260; Q0163; Q2038

== ENCOUNTER 2017-11-20 07:56 | Inpatient (IN) | payer BC, OTHER ==
[~2017-11-20] VITALS: Ht 185.4 cm; Wt 148.3 kg
[~2017-11-20 07:56] MED LIST changes: -COMMODE 3:1; -DOCU1CAP39 PO; +FERR325T20 PO; +GABA300C5 PO; -GABA400 PO; +INSU1INJ14 SQ; -LEVEMIR SQ; +LISI-519 PO; -LISI10 PO; +METR-1 PO; -OXYC1CAP PO; -PACE200T4 PO; -POLY119S PO; -PROT40TA PO; +TRAM50TA PO; -Z.0.WALKERBAR; -Z.0.WHEELBAR
[2017-11-20 07:58] VITALS: BP 167/80; PULSE 70; RESP 14; TEMP 98.6; O2SAT 99
[2017-11-20 08:34] VITALS: RESP 18; O2SAT 98
[2017-11-20 08:52] LABS: AUTOMATED NEUTROPHIL # 4.1 TH/MM3 (1.8-7.7); BASOPHIL # 0.1 TH/MM3 (0-0.2); BASOPHIL % 0.9 % (0.0-2.0); EOSINOPHIL # 0.2 TH/MM3 (0-0.4); EOSINOPHIL % 3.1 % (0.0-4.0); HEMOGLOBIN 12.7 GM/DL (13.0-17.0); LYMPH % 37.2 % (9.0-44.0); MEAN CELL VOLUME 86.1 FL (80.0-100.0); MEAN CORPUSCULAR HEMOGLOBIN 28.8 PG (27.0-34.0); MEAN CORPUSCULAR HGB CONC 33.5 % (32.0-36.0); MEAN PLATELET VOLUME 8.4 FL (7.0-11.0); MONO % 7.2 % (0.0-8.0); MONOCYTE # 0.6 TH/MM3 (0-0.9); NEUT % 51.6 % (16.0-70.0); PLATELET COUNT 226 TH/MM3 (150-450); RED BLOOD COUNT 4.41 MIL/MM3 (4.50-5.90); RED CELL DISTRIBUTION WIDTH 14.1 % (11.6-17.2)
--- NOTE | 2017-11-20 08:53 | PD ---
HPI Chief Complaint: Medical Clearance Time Seen by Provider: 08:30 Travel History International Travel<30 days: No Contact w/Intl Traveler<30days: No Traveled to known affect area: No History of Present Illness HPI This is a 57-year-old male with history diabetes mellitus, and presents here at the request of his water pollution control inspector, Dr. Zuniga, for admission for right toe surgery. Patient states he has what he thinks is an infection in the bone that was seen on MRI. He denies any fevers, chills. He states his sugars been in the 100s. There are no other complaints time my examination. PFSH Past Medical History Arthritis: Yes Asthma: No Autoimmune Disease: No Anxiety: No Depression: No Heart Rhythm Problems: No Cancer: No Cardiovascular Problems: Yes High Cholesterol: Yes Chemotherapy: No Chest Pain: No Congestive Heart Failure: No COPD: No Cerebrovascular Accident: No Diabetes: Yes Patient Takes Glucophage: No Endocrine: Yes Gastrointestinal Disorders: No GERD: No Genitourinary: No Headaches: No Hiatal Hernia: No Heparin Induced Thrombocytopen: No Hypertension: No Immune Disorder: No Implanted Vascular Access Dvce: No Kidney Stones: No Musculoskeletal: Yes (right knee) Neurologic: Yes Psychiatric: No Reproductive: Yes (erectile dysfunction) Respiratory: Yes Migraines: No Radiation Therapy: No Renal Failure: No Seizures: No Sickle Cell Disease: No Sleep Apnea: Yes (NOT USING CPAP) Thyroid Disease: No Ulcer: No Past Surgical History Abdominal Surgery: No AICD: No Arteriovenous Shunt: No Cardiac Surgery: No Ear Surgery: No Endocrine Surgery: No Eye Surgery: No Genitourinary Surgery: No Gynecologic Surgery: No Insulin Pump: No Joint Replacement: No Neurologic Surgery: No Oral Surgery: No Pacemaker: No Thoracic Surgery: No Other Surgery: Yes (ARTHROSCOPIC MCL AND ACL REPAIR) Social History Alcohol Use: Yes (RARELY) Tobacco Use: No Substance Use: No Allergies-Medications (Allergen,Severity, Reaction): Coded Allergies: *MDRO Multi-Drug Resistant Organism (Verified Allergy, Unknown, 11/20/17) Hx MRSA 2011 Neck Wound Reported Meds & Prescriptions Reported Meds & Active Scripts Active Flagyl (Metronidazole) 500 Mg Tab 500 Mg PO Q6HR 10 Days Lisinopril 5 Mg Tab 5 Mg PO DAILY Reported Gabapentin 300 Mg Cap 300 Mg PO TID Tramadol (Tramadol HCl) 50 Mg Tab 50 Mg PO Q4H PRN Tresiba Flextouch Pen Inj (Insulin Degludec Inj) 300 unit/3 ML Pen 80 Units SQ DAILY Novolog Inj (Insulin Aspart) 1,000 Unit/10 Ml Vial 0 SQ DIRECTED Sliding Scale as directed. Review of Systems Except as stated in HPI: all other systems reviewed are Neg General / Constitutional: No: Fever, Chills HENT: No: Headaches, Lightheadedness Cardiovascular: No: Chest Pain or Discomfort, Palpitations Respiratory: No: Cough, Shortness of Breath Gastrointestinal: No: Nausea, Vomiting, Abdominal Pain Musculoskeletal: Positive: Pain, No: Weakness (right great toe) Neurologic: No: Weakness, Dizziness, Headache Physical Exam Narrative GENERAL: Well-nourished, well-developed patient, in no acute distress. SKIN: Focused skin assessment warm/dry. HEAD: Normocephalic/atraumatic. EYES: No scleral icterus. No injection or drainage. NECK: Supple, trachea midline. No JVD or lymphadenopathy. CARDIOVASCULAR: Regular rate and rhythm without murmurs, gallops, or rubs. RESPIRATORY: Breath sounds equal bilaterally. No accessory muscle use. GASTROINTESTINAL: Abdomen soft, non-tender, nondistended. MUSCULOSKELETAL: Patient is missing his right fifth toe from previous surgery. Right rate toe has a ulcer on the bottom of his pad. There is no drainage. It is black in coloration. BACK: Nontender without obvious deformity. No CVA tenderness. NEUROLOGICAL: Awake and alert. Cranial nerves II through XII intact. Motor grossly within normal limits. Five out of 5 muscle strength in all muscle groups. Normal speech. Data Data Last Documented VS Vital Signs Date Time Temp Pulse Resp B/P (MAP) Pulse Ox O2 Delivery O2 Flow Rate FiO2 11/20/17 08:34 18 98 Room Air 11/20/17 07:58 98.6 70 Orders Orders Complete Blood Count With Diff (11/20/17 08:30) Basic Metabolic Panel (Bmp) (11/20/17 08:30) Prothrombin Time / Inr (Pt) (11/20/17 08:30) Act Partial Throm Time (Ptt) (11/20/17 08:30) Blood Culture (11/20/17 08:30) Chest, Single Ap (11/20/17 08:30) Iv Access Insert/Monitor (11/20/17 08:30) Ecg Monitoring (11/20/17 08:30) Oximetry (11/20/17 08:30) Toe (Min 2vws) (11/20/17 08:30) Admit Order (Ed Use Only) (11/20/17 10:49) Labs Laboratory Tests Test 11/20/17 08:40 White Blood Count 8.0 TH/MM3 Red Blood Count 4.41 MIL/MM3 Hemoglobin 12.7 GM/DL Hematocrit 38.0 % Mean Corpuscular Volume 86.1 FL Mean Corpuscular Hemoglobin 28.8 PG Mean Corpuscular Hemoglobin Concent 33.5 % Red Cell Distribution Width 14.1 % Platelet Count 226 TH/MM3 Mean Platelet Volume 8.4 FL Neutrophils (%) (Auto) 51.6 % Lymphocytes (%) (Auto) 37.2 % Monocytes (%) (Auto) 7.2 % Eosinophils (%) (Auto) 3.1 % Basophils (%) (Auto) 0.9 % Neutrophils # (Auto) 4.1 TH/MM3 Lymphocytes # (Auto) 3.0 TH/MM3 Monocytes # (Auto) 0.6 TH/MM3 Eosinophils # (Auto) 0.2 TH/MM3 Basophils # (Auto) 0.1 TH/MM3 CBC Comment DIFF FINAL Differential Comment Prothrombin Time 9.3 SEC Prothromb Time International Ratio 0.9 RATIO Activated Partial Thromboplast Time 24.7 SEC Blood Urea Nitrogen 20 MG/DL Creatinine 0.87 MG/DL Random Glucose 167 MG/DL Calcium Level 9.0 MG/DL Sodium Level 139 MEQ/L Potassium Level 3.8 MEQ/L Chloride Level 107 MEQ/L Carbon Dioxide Level 25.5 MEQ/L Anion Gap 7 MEQ/L Estimat Glomerular Filtration Rate 90 ML/MIN [facility] Medical Decision Making Medical Screen Exam Complete: Yes Emergency Medical Condition: Yes Differential Diagnosis Told her versus osteomyelitis versus gangrene versus vascular insufficiency. Narrative Course 57-year-old male with history of diabetes most, hypertension, who presents today with complaints of being told to come here for admission for surgery to have his right great toe removed. The patient reports an MRI showed what he thought was infection in the bone. The patient be admitted to the resident service. Case was discussed with senior resident who agrees to bring the patient to service. There will be a consult with podiatry. Diagnosis Primary Impression: right great toe osteomyelitis Additional Impressions: DM (diabetes mellitus) HTN (hypertension) Shubham Cleary MD Nov 20, 2017 08:53
[2017-11-20 08:59] LABS: INTERNATIONAL NORMALIZED RATIO 0.9 RATIO; PROTHROMBIN TIME - PATIENT 9.3 SEC (9.8-11.6)
[2017-11-20 09:14] LABS: BICARBONATE 25.5 MEQ/L (21.0-32.0); CREATININE 0.87 MG/DL (0.60-1.30)
--- NOTE | 2017-11-20 09:34 | RADRPT ---
EXAM DATE/TIME: 11/20/2017 09:03 [facility] COMPARISON: CHEST SINGLE AP, September 01, 2017, 14:08. INDICATIONS : Infection in great toe- No chest complaints. MEDICAL HISTORY : Hypercholesterolemia. Arthritis. Bilateral feet numbness, Diabetes. SURGICAL HISTORY : Two arthroscopic surgeries in right knee (ACL and MCL) ENCOUNTER: Initial ACUITY: 1 week PAIN SCORE: 0/10 LOCATION: Bilateral chest FINDINGS: A single view of the chest demonstrates the lungs to be symmetrically aerated without evidence of mas s, infiltrate or effusion. The cardiomediastinal contours are unremarkable. Osseous structures are intact. CONCLUSION: No acute disease. Ronal Ventura MD on November 20, 2017 at 9:32 Board Certified Radiologist. This report was verified electronically.
--- NOTE | 2017-11-20 09:40 | RADRPT ---
EXAM DATE/TIME: 11/20/2017 09:04 [facility] COMPARISON: No previous studies available for comparison. INDICATIONS : Infection in great toe. MEDICAL HISTORY : Hypercholesterolemia. Arthritis. Diabetes, Bilateral feet numbness. SURGICAL HISTORY : Two arthroscopic surgeries in right knee (ACL and MCL) ENCOUNTER: Initial ACUITY: 1 week PAIN SCORE: 0/10 LOCATION: Right Great toe. FINDINGS: Examination of the first digit of the right foot demonstrates generalized soft tissue swelling of the great toe. There are no destructive bone changes. Ulceration is seen along the plantar surface of th e toe. There is no evidence of acute fracture or dislocation. The fifth toe and majority of the fifth metatarsal have been resected. Dystrophic calcification is id entified adjacent to the proximal remaining metatarsal fragment. CONCLUSION: Soft tissue swelling with this is actively destructive bone changes. Status post amputation of the fifth toe and fifth metatarsal. Ronal Ventura MD on November 20, 2017 at 9:35 Board Certified Radiologist. This report was verified electronically.
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
[2017-11-20] MEDS ORDERED: ONDANSETRON HCL 4 MG/2 ML VIAL IVP PRN (11:30)
[2017-11-20] MEDS ORDERED: SODIUM CHLORIDE 0.9% FLUSH 10 ML FLUSH IV FLUSH PRN (11:30)
[2017-11-20] MEDS ORDERED: NALOXONE HCL 0.4 MG/ML AMP IV PUSH PRN (11:30)
[2017-11-20] MEDS ORDERED: ACETAMINOPHEN 325 MG TAB PO PRN (11:30)
[2017-11-20] MEDS ORDERED: BISACODYL 10 MG SUPP RECTAL PRN (11:30)
[2017-11-20] MEDS ORDERED: MAGNESIUM HYDROXIDE SUSP 30 ML CUP PO PRN (11:30)
[2017-11-20] MEDS ORDERED: LACTULOSE SYRUP 20 GM/30 ML CUP PO PRN (11:30)
[2017-11-20] MEDS ORDERED: SENNOSIDES 8.6 MG TAB PO PRN (11:30)
[2017-11-20 12:15] VITALS: BP 134/78; PULSE 59; RESP 19; TEMP 95.8; O2SAT 97
[2017-11-20] MEDS ORDERED: Vancomycin Consult Pharmacy 1 EA OTHER SCH (13:00)
[2017-11-20] MEDS ORDERED: LEVOFLOXACIN 750 MG PREMIX INJ 150 ML IV SCH (13:15)
[2017-11-20] MEDS ORDERED: DEXTROSE 50% IN WATER 50 ML VIAL(D50) IV PUSH PRN (13:15)
[2017-11-20] MEDS ORDERED: GLUCAGON 1 MG/ML VIAL OTHER PRN (13:15)
[2017-11-20] MEDS ORDERED: traMADol HCL 50 MG TAB PO PRN (13:30)
[2017-11-20] MEDS ORDERED: VANCOMYCIN INJ 1,500 MG in SODIUM CHLORID 0.9% 500 ML INJ 500 ML IV SCH (14:00)
--- NOTE | 2017-11-20 14:17 | PD.POD ---
Past Med/Surg/Social History Social History Smoking Status: Never Smoker Objective Vital Signs Vital Signs Date Time Temp Pulse Resp B/P (MAP) Pulse Ox O2 Delivery O2 Flow Rate FiO2 11/20/17 12:15 95.8 59 19 134/78 (96) 97 11/20/17 08:34 18 98 Room Air 11/20/17 08:29 18 11/20/17 07:58 98.6 70 14 167/80 (109) 99 Coded Allergies: *MDRO Multi-Drug Resistant Organism (Verified Allergy, Unknown, 11/20/17) Hx MRSA 2011 Neck Wound Assessment & Plan Diagnosis: (1) Diabetic ulcer of toe of right foot associated with type 2 diabetes mellitus , with necrosis of bone ICD Codes: E11.621 - Type 2 diabetes mellitus with foot ulcer; L97.514 - Non- pressure chronic ulcer of other part of right foot with necrosis of bone (2) Osteomyelitis of ankle or foot, right, acute ICD Codes: M86.171 - Other acute osteomyelitis, right ankle and foot A/P FULL CONSULT DICTATED- Plan for OR tomorrow 10 am for resection hoping to obtain clear Om margin, will take bone Cx, will need observation after surgery for minimum 2 days until micro returns and possible Bx biopsy to be certain. Vinny Meléndez DPM Nov 20, 2017 14:17
[2017-11-20] MEDS ORDERED: VANCOMYCIN INJ 2,500 MG in SODIUM CHLORID 0.9% 500 ML INJ 500 ML IV ONE (15:00)
[2017-11-20 15:59] VITALS: BP 138/65; PULSE 61; RESP 18; TEMP 97; O2SAT 98
--- NOTE | 2017-11-20 16:27 | MB ---
cc: ASHLEY GRANADOSM DATE OF CONSULTATION 11/20/2017 REASON FOR CONSULTATION Right hallux ulcer likely osteomyelitis. HISTORY OF PRESENT ILLNESS This is a 57-year-old male who is known to my partner Dr. Zuniga. Apparently mid October there was a MRI performed outpatient at [facility] that showed involvement of the distal phalanx of the right hallux. He has been battling this ulcer for 2 months now. He a history of fifth ray resection which has significantly improved. The outpatient plan per Dr. Zuniga failed outpatient conservative care and the patient wished to move forward with hallux amputation. Currently I am seeing the patient bedside. He denies any new issues. PAST MEDICAL HISTORY Positive for: 1. Diabetes. 2. Peripheral neuropathy. 3. Arthroscopic knee surgery. 4. Right fifth ray amputation. ALLERGIES NO KNOWN DRUG ALLERGIES, HOWEVER, HISTORY OF MULTIDRUG RESISTANT ORGANISM. SOCIAL HISTORY Occasional alcohol. No tobacco. Outpatient channel development manager is Dr. Zuniga. PRIMARY CARE PHYSICIAN Dr. Cline. MEDICATIONS 1. The patient recently finished a prescription of Bactrim. 2. He also takes Gabapentin. 3. Ultram. 4. The patient also takes lisinopril. 5. Flagyl. 6. Tresiba. 7. NovoLog. PHYSICAL EXAMINATION VITAL SIGNS: Temperature is 98.6, pulse rate 70, respiratory rate 14, blood pressure 167/80. He is sating 99% on room air. GENERAL: This is an alert and oriented gentleman seen bedside exhibiting nonlabored respirations. He appears to be clinically obese with a weight of 143 kg. EXTREMITIES: The right lower extremity is examined. There is noted be an absent fifth digit fifth ray. There is superficial scaling of the skin but no obvious open lesion. No obvious ulcer. The distal aspect of the right hallux there is noted to be a full-thickness ulcer that appears to go down to the patient's subcutaneous fat with possible probing to bone. There is minimal localized erythema. There is a mild contracture of the hallux. The hallux is noted to be intact vascular refill. Capillary refill is within normal limits. Sensation is significantly decreased below the ankle. There is good ankle joint range of motion. Left lower extremity is examined. It is noted to be ulcer free. Bilateral pedal pulses are palpable dorsalis pedis and posterior tibialis. The foot, leg and ankle appear to be warm. LABORATORY FINDINGS White blood cell 8.0. Hemoglobin/hematocrit 12 and 38. Platelet count is 226. Chem-7 sodium is 139, potassium 3.8, chloride 107, CO2 25.5, BUN is 20. Random glucose is 167. Coagulation profile PT 9.3, INR 0.9. Microbial findings, aerobic blood culture ordered and pending. IMAGING Imaging findings, lower extremity focused toe x-ray does not show any obvious cortical erosion at the level of the hallux. The fifth toe the majority of fifth metatarsal had been resected. Dystrophic calcification is seen. Outpatient MRI from [facility] shows uptake consistent with osteomyelitis of the patient's distal phalanx. ASSESSMENT/PLAN Diabetic neuropathic full-thickness ulcer with likely distal phalanx osteomyelitis. The plan, operative debridement of partial hallux amputation tomorrow. We will obtain deep culture and send bone specimen attempting to obtain clear margins and hopefully the patient to go out on oral antibiotics. Explained to the patient there are risks with this surgery, may need more surgery at a later date, poor healing, nonhealing, need for more amputation of the foot if not the entire foot. I also offered conservative management which included bone biopsy, long-term IV antibiotics. The patient was not interested. He feels that he has already exhausted conservative management and wishes for amputation to eradicate bone infection. No guarantees were given or implied regarding the outcome. The patient will be seen in the a.m. Ordered n.p.o. Surgery planned for tomorrow. SANTY Gonzales/KYARA /2:07 PM /3:47 PM
[2017-11-20] MEDS: INSULIN NovoLIN REGULAR SUPPLEMENTAL SCALE SQ SCH ×2 (17:00→21:00)
[2017-11-20] MEDS ORDERED: LACTATED RINGER'S 1000 ML IV PRN (19:45)
[2017-11-20] MEDS ORDERED: METOPROLOL TARTRATE 25 MG TAB PO PRN (19:45)
[2017-11-20] MEDS ORDERED: SODIUM CHLORID 0.9% 500 ML IV PRN (19:45)
[2017-11-20] MEDS ORDERED: INSULIN HUMAN REGULAR 1,000 UNITS/10 ML VIAL SQ PRN (19:45)
[2017-11-20] MEDS ORDERED: POVIDONE IODINE 5% (ANTISEPSIS KIT) 4 APPLICATIONS EACH NARE PRN (19:45)
[2017-11-20] MEDS ORDERED: CHLORHEXIDINE GLUCONATE 2 % 1 PACK (2 CLOTHS) TOPICAL PRN (19:45)
[2017-11-20 20:40] VITALS: BP 145/71; PULSE 77; RESP 20; TEMP 95.6; O2SAT 93
[2017-11-20] MEDS: DOCUSATE SODIUM 50 MG/SENNA 8.6 MG TAB PO SCH (21:00)
[2017-11-20] MEDS: GABAPENTIN 300 MG CAP PO SCH (23:17)
[2017-11-20] MEDS: SODIUM CHLORIDE 0.9% FLUSH 10 ML FLUSH IV FLUSH SCH (23:18)
[2017-11-21] VITALS: BP 111/56; PULSE 60; RESP 20; TEMP 96.4; O2SAT 91
[2017-11-21] MEDS: VANCOMYCIN INJ 2,000 MG in SODIUM CHLORID 0.9% 500 ML INJ 500 ML IV SCH ×2 (03:15→18:08)
[2017-11-21] MEDS ORDERED: BUPIVACAINE HCL PF 0.25% 30 ML VIAL ONE (07:04)
[2017-11-21] MEDS ORDERED: NEOMYCIN/POLYMYXIN 1 ML G.U. IRRIGANT ONE (07:07)
[2017-11-21 08:00] VITALS: BP 133/69; PULSE 61; RESP 16; TEMP 96.2; O2SAT 95
[2017-11-21] MEDS ORDERED: DO NOT ADM ANY ANTICOAGULANT DRUGS PRN (09:50)
[2017-11-21] MEDS ORDERED: *ENALAPRILAT 1.25 MG/ML VIAL PERIprocedural Use ONLY ONE (09:53)
--- NOTE | 2017-11-21 09:58 | PD.OP ---
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 Patient is a outpatient from clinic with MRI consistent with osteomyelitis of the distal phalanx with chronic ulcer. Patient has exhausted conservative measures and wishes for hallux amputation. Risks and benefits reviewed including but not limited to need for more surgery at a later date partial amputation of foot and or chronic wound healing issues secondary to diabetes. Patient understood risks and consented to procedure. Procedure in detail. Under mild sedation the patient was brought in the operating room and placed on the operating table in the supine position. Following the induction of LMA general anesthesia local anesthesia was obtained about the patient's hallux utilizing standard block fashion. Patient's right foot was then scrubbed prepped and draped in the usual aseptic fashion, foot was elevated exsanguinated and the previously placed mid ankle tourniquet was inflated at 215 mmHg. Distal hallux ulcer was noted with minimal drainage minimal periwound erythema. A fishmouth type incision was made just proximal to the ulcer disarticulating the hallux IPJ. Proximal phalanx head had a hard cortical nature with no signs of obvious osteomyelitis. Bone culture taken at this level. Pathology was also taken by means of bone biter of the proximal phalanx head to check for any proximal margin. Clinically there appears to be a clean margin. A skin plasty was then performed of the dog ear that was noted upon closing the dorsal plantar flap utilizing a combination of Vicryl and nylon suturing. Upon releasing the tourniquet there is a prompt hyperemic response to all digits with good Fill of the flaps. The patient received a bulky bandage transferred from or to PACU with all vital signs stable. The patient will return to the floor bandage change in 1-2 days and we'll await micropathology at this point. Tourniquet time noted of approximately 16 minutes estimated blood loss under 30 mL's complications none Vinny Knight DPM Nov 21, 2017 09:58
[2017-11-21] MEDS: INSULIN NovoLIN REGULAR SUPPLEMENTAL SCALE SQ SCH ×4 (10:01→20:54)
[2017-11-21] MEDS: SODIUM CHLORIDE 0.9% FLUSH 10 ML FLUSH IV FLUSH SCH ×2 (10:01→20:53)
[2017-11-21] MEDS: LISINOPRIL 5 MG TAB PO SCH (10:44)
[2017-11-21] MEDS: GABAPENTIN 300 MG CAP PO SCH ×3 (10:44→18:08)
[2017-11-21] MEDS: DOCUSATE SODIUM 50 MG/SENNA 8.6 MG TAB PO SCH ×2 (10:44→20:53)
[2017-11-21] MEDS: LEVOFLOXACIN 750 MG TAB PO SCH (10:44)
[2017-11-21 12:00] VITALS: BP 110/61; PULSE 68; RESP 16; TEMP 97.3; O2SAT 97
[2017-11-21] MEDS ORDERED: LIDOCAINE HCL 1% PF 5 ML SYRINGE OTHER ONE (12:00)
[2017-11-21] MEDS ORDERED: ePHEDrine/NS 25 MG/5 ML SYRINGE IV ONE (12:00)
[2017-11-21] MEDS ORDERED: PHENYLEPH/NS 1000 MCG/10 ML SYR IV ONE (12:00)
[2017-11-21] MEDS ORDERED: SUCCINYLCHOLINE CHLORIDE 100 MG/5 ML SYRINGE IV PUSH ONE (12:00)
[2017-11-21] MEDS ORDERED: PROPOFOL 200 MG/20 ML AMP IV ONE (12:00)
--- NOTE | 2017-11-21 13:34 | HHI.FPPN ---
Subjective Remarks Mr. Brice was seen at ~0740 11/21 Mr. Brice reports that he has been doing well with unchanged symptoms since admission. Patient does not report chest pain, shortness of breath, abdominal pain, or problems with bowel movements or urination. (Jeff Riggs MD, R3) Objective Vitals Vital Signs Date Time Temp Pulse Resp B/P (MAP) Pulse Ox O2 Delivery O2 Flow Rate FiO2 11/21/17 12:00 97.3 68 16 110/61 (77) 97 11/21/17 10:18 68 16 161/77 (105) 99 Nasal Cannula 3 11/21/17 10:00 74 14 176/81 (112) 97 Nasal Cannula 3 11/21/17 10:00 73 18 183/82 (115) 8 Nasal Cannula 3 11/21/17 09:50 97.9 77 18 191/88 (122) 92 Nasal Cannula 3 11/21/17 08:00 96.2 61 16 133/69 (90) 95 11/21/17 00:00 96.4 60 20 111/56 (74) 91 11/20/17 20:40 95.6 77 20 145/71 (95) 93 11/20/17 15:59 97.0 61 18 138/65 (89) 98 I/O 11/20/17 11/20/17 11/20/17 11/21/17 11/21/17 11/21/17 07:00 15:00 23:00 07:00 15:00 23:00 Intake Total 0 ml 520 ml 950 ml Balance 0 ml 520 ml 950 ml Intake Oral 0 ml 250 ml IV Total 520 ml Other 700 ml # Voids 0 1 # Bowel Movements 0 (Jeff Riggs MD, R3) Result Diagram: 11/20/1740 11/20/17 0840 Imaging Last Impressions Toe X-Ray 11/20/17829 Signed Impressions: Service Date/Time: Monday, November 20, 2017 09:04 - CONCLUSION: Soft tissue swelling with this is actively destructive bone changes. Status post amputation of the fifth toe and fifth metatarsal. Ronal Ventura MD Chest X-Ray 11/20/17829 Signed Impressions: Service Date/Time: Monday, November 20, 2017 09:03 - CONCLUSION: No acute disease. Ronal Ventura MD Objective Remarks GENERAL: This is a obese, well-developed patient, in no apparent distress. SKIN: R foot covered; ulceration of R foot not visualized. No rashes or lesions. EYES: EOM grossly intact CARDIOVASCULAR: Regular rate and rhythm without murmurs; normal peripheral perfusion RESPIRATORY: Clear to auscultation. Breath sounds equal bilaterally. No wheezes to auscultation GASTROINTESTINAL: Abdomen soft, non-tender, nondistended. MUSCULOSKELETAL: Extremities without edema. No calf tenderness. Amputation of right fifth tarsal. NEUROLOGICAL: Awake and alert. Motor and sensory grossly within normal limits. Grossly normal peripheral motor/sensory function (Jeff Riggs MD, R3) A/P Assessment and Plan Mr. Brice is a 57-year-old male with PMH T2DM who presents with with 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 Patient and on-call sales review clerk (Vinny Meléndez) report osteomyelitis on previous MRI last week. Currently without signs or symptoms of septicemia. (Jeff Riggs MD, R3) Attending Attestation THIS CASE WAS DISCUSSED WITH THE RESIDENT PHYSICIANS. I HAVE REVIEWED THE RECORD , PATIENT SEEN AND EXAMINED, AND AGREE WITH THE ABOVE NOTE AND PLAN OF CARE WAS DISCUSSED. I HAVE AUTHORIZED THE ORDER FOR ADMISSION TO AN IN-PATIENT STATUS. (Nick Levi MD) Problem List: (1) Osteomyelitis of ankle or foot, right, acute ICD Codes: M86.171 - Other acute osteomyelitis, right ankle and foot Plan: -Continue antibiotic treatment * Vancomycin 1500 mg 3 times a day * Levaquin 750 mg daily by mouth (good bone penetration) -Follow recommendations by sales review clerk * Surgery on 11/21 (after discussion of conservative management vs surgery patient elected for surgery) * R hallux partial amputation -Monitor for signs of septicemia Impression: Osteomyelitis of right hallux without signs of septicemia at this time. Patient of sales review clerk Dr. Zuniga. Outpatient MRI ([facility])- osteomyelitis of distal phalanx Toe XR on admission without obvious cortical erosion; 5th toe with majority of 5th metatarsal resected Cultures/biopsies: Toe biopsy- pending Toe gram stain/cultures- pending Blood cultures (11/20)- negative x1 day (2) DM (diabetes mellitus) ICD Codes: E11.9 - Type 2 diabetes mellitus without complications Status: Chronic Plan: Impression: Diabetes type 2. A1C 8.9 08/2017 -Hold home medications for now -Low-dose sliding scale insulin -Bedside glucose checks (3) HTN (hypertension) ICD Codes: I10 - Essential (primary) hypertension Status: Chronic Plan: Impression: Chronic hypertension. Normal Cr -Continue home medications -Lisinopril 5 mg daily -Will consider increasing to 10mg on discharge as patient has been frequently hypertensive at prior hospitalizations per EMR -Will add PRN hydralazine (4) Diabetic neuropathy ICD Codes: E11.40 - Type 2 diabetes mellitus with diabetic neuropathy, unspecified Plan: Continue home medications -Gabapentin 300 mg by mouth 3 times a day -Tramadol 50 mg by mouth every 4hrs when necessary (5) FEN Plan: Fluids: Tolerating by mouth Electrolytes: -Monitor and replete as needed Nutrition: Diabetic diet (Jeff Riggs MD, R3) Problem Qualifiers (1) HTN (hypertension): Qualified Codes: I10 - Essential (primary) hypertension Jeff Riggs MD, R3 Nov 21, 2017 13:34 Nick Levi MD Nov 23, 2017 13:33
[2017-11-21] MEDS ORDERED: hydrALAZINE HCL 10 MG TAB PO PRN (13:45)
[2017-11-21 15:06] LABS: AUTOMATED NEUTROPHIL # 4.7 TH/MM3 (1.8-7.7); BASOPHIL # 0.1 TH/MM3 (0-0.2); BASOPHIL % 0.6 % (0.0-2.0); EOSINOPHIL # 0.2 TH/MM3 (0-0.4); HEMATOCRIT 36.5 % (39.0-51.0); LYMPH % 29.4 % (9.0-44.0); LYMPHOCYTE # 2.3 TH/MM3 (1.0-4.8); MEAN CELL VOLUME 86.2 FL (80.0-100.0); MEAN CORPUSCULAR HEMOGLOBIN 28.4 PG (27.0-34.0); MEAN PLATELET VOLUME 8.6 FL (7.0-11.0); MONO % 7.1 % (0.0-8.0); MONOCYTE # 0.6 TH/MM3 (0-0.9); NEUT % 60.9 % (16.0-70.0); PLATELET COUNT 222 TH/MM3 (150-450); RED BLOOD COUNT 4.24 MIL/MM3 (4.50-5.90); WHITE BLOOD COUNT 7.8 TH/MM3 (4.0-11.0)
[2017-11-21 15:36] LABS: BICARBONATE 27.5 MEQ/L (21.0-32.0); CALCIUM 8.9 MG/DL (8.5-10.1); CREATININE 0.76 MG/DL (0.60-1.30)
[2017-11-21 16:00] VITALS: BP 124/58; PULSE 62; RESP 16; TEMP 96.9; O2SAT 96
[2017-11-21 17:23] VITALS: O2SAT 96
[2017-11-21 20:00] VITALS: BP 122/58; PULSE 69; RESP 18; TEMP 96.2; O2SAT 94
[2017-11-22] VITALS (7 sets, daily range): BP systolic 129–157; BP diastolic 60–73; PULSE 63–86; RESP 16–20; TEMP 96.3–97.6; O2SAT 93–97
[2017-11-22] MEDS ORDERED: PHARMACY ORDERED LAB ONE (02:45)
[2017-11-22] MEDS: VANCOMYCIN INJ 2,000 MG in SODIUM CHLORID 0.9% 500 ML INJ 500 ML IV SCH ×2 (02:59→21:08)
[2017-11-22 04:18] LABS: CREATININE 0.77 MG/DL (0.60-1.30)
[2017-11-22] MEDS: INSULIN NovoLIN REGULAR SUPPLEMENTAL SCALE SQ SCH ×3 (08:00→21:18)
[2017-11-22] MEDS: SODIUM CHLORIDE 0.9% FLUSH 10 ML FLUSH IV FLUSH SCH ×2 (09:00→21:08)
[2017-11-22] MEDS: LISINOPRIL 5 MG TAB PO SCH (09:00)
[2017-11-22] MEDS: LEVOFLOXACIN 750 MG TAB PO SCH (09:07)
[2017-11-22] MEDS: DOCUSATE SODIUM 50 MG/SENNA 8.6 MG TAB PO SCH ×2 (09:07→21:06)
[2017-11-22] MEDS: GABAPENTIN 300 MG CAP PO SCH ×3 (09:07→17:56)
[2017-11-22 09:38] LABS: HEMATOCRIT 37.1 % (39.0-51.0); HEMOGLOBIN 12.2 GM/DL (13.0-17.0); MEAN CELL VOLUME 86.2 FL (80.0-100.0); MEAN CORPUSCULAR HEMOGLOBIN 28.3 PG (27.0-34.0); MEAN CORPUSCULAR HGB CONC 32.9 % (32.0-36.0); MEAN PLATELET VOLUME 8.8 FL (7.0-11.0); PLATELET COUNT 219 TH/MM3 (150-450); RED BLOOD COUNT 4.31 MIL/MM3 (4.50-5.90); RED CELL DISTRIBUTION WIDTH 13.6 % (11.6-17.2); WHITE BLOOD COUNT 8.8 TH/MM3 (4.0-11.0)
--- NOTE | 2017-11-22 09:47 | HHI.FPPN ---
Subjective Remarks Patient seen and examined this morning. No acute events overnight. Reports surgery went well yesterday. Denies any concerns this morning. He has not talked with the in flight refueling system repairer yet. Further note, they would like to observe him for 2 days. Denies any fever/chills, nausea/vomiting, chest pain, shortness of breath, abdominal pain. No change in neuropathy in his lower extremities. Objective Vitals Vital Signs Date Time Temp Pulse Resp B/P (MAP) Pulse Ox O2 Delivery O2 Flow Rate FiO2 11/22/17 08:00 96.3 65 17 139/73 (95) 93 11/22/17 00:00 97.6 86 18 133/60 (84) 97 11/21/17 20:00 96.2 69 18 122/58 (79) 94 11/21/17 17:23 96 Nasal Cannula 3.00 11/21/17 16:00 96.9 62 16 124/58 (80) 96 11/21/17 12:00 97.3 68 16 110/61 (77) 97 11/21/17 10:18 68 16 161/77 (105) 99 Nasal Cannula 3 11/21/17 10:00 74 14 176/81 (112) 97 Nasal Cannula 3 11/21/17 10:00 73 18 183/82 (115) 8 Nasal Cannula 3 11/21/17 09:50 97.9 77 18 191/88 (122) 92 Nasal Cannula 3 I/O 11/21/17 11/21/17 11/21/17 11/22/17 11/22/17 11/22/17 06:59 14:59 22:59 06:59 14:59 22:59 Intake Total 520 ml 950 ml 520 ml 880 ml Balance 520 ml 950 ml 520 ml 880 ml Intake Oral 250 ml 0 ml 360 ml IV Total 520 ml 520 ml 520 ml Other 700 ml # Voids 1 2 2 # Bowel Movements 0 0 Result Diagram: 11/22/17 0850 11/22/17 0245 Objective Remarks GENERAL: This is a obese, well-developed patient, in no apparent distress. CARDIOVASCULAR: Regular rate and rhythm without murmurs; normal peripheral perfusion RESPIRATORY: Clear to auscultation. Breath sounds equal bilaterally. No wheezes to auscultation GASTROINTESTINAL: Abdomen soft, non-tender, nondistended. MUSCULOSKELETAL: Extremities without edema. No calf tenderness. RLE: Foot covered in bandage. Clean/dry/intact. NEUROLOGICAL: Awake and alert. A/P Assessment and Plan Mr. Brice is a 57-year-old male with PMH T2DM who presents with with 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 Patient and on-call in flight refueling system repairer (Vinny Meléndez) report osteomyelitis on previous MRI last week. Currently without signs or symptoms of septicemia. Discharge Planning Pending podiatry recs Problem List: (1) Osteomyelitis of ankle or foot, right, acute ICD Codes: M86.171 - Other acute osteomyelitis, right ankle and foot Plan: POD#1 from right hallux partial amputation (11/21) -Continue antibiotic treatment * Vancomycin 1500 mg 3 times a day * Levaquin 750 mg daily by mouth (good bone penetration) -Follow recommendations by in flight refueling system repairer -Monitor for signs of septicemia Impression: Osteomyelitis of right hallux without signs of septicemia at this time. Patient of in flight refueling system repairer Dr. Zuniga. Outpatient MRI ([facility])- osteomyelitis of distal phalanx Toe XR on admission without obvious cortical erosion; 5th toe with majority of 5th metatarsal resected Cultures/biopsies: Toe biopsy- pending Toe gram stain/cultures- gram stain negative and no fungal elements seen Blood cultures (11/20)- NGTD (2) DM (diabetes mellitus) ICD Codes: E11.9 - Type 2 diabetes mellitus without complications Status: Chronic Plan: Impression: Diabetes type 2. A1C 8.9 08/2017 -Hold home medications for now -Low-dose sliding scale insulin -Bedside glucose checks (3) HTN (hypertension) ICD Codes: I10 - Essential (primary) hypertension Status: Chronic Plan: Impression: Chronic hypertension. Normal Cr -Continue home medications -Lisinopril 5 mg daily -Will consider increasing to 10mg on discharge as patient has been frequently hypertensive at prior hospitalizations per EMR -Will add PRN hydralazine (4) Diabetic neuropathy ICD Codes: E11.40 - Type 2 diabetes mellitus with diabetic neuropathy, unspecified Plan: Continue home medications -Gabapentin 300 mg by mouth 3 times a day -Tramadol 50 mg by mouth every 4hrs when necessary (5) FEN Plan: Fluids: Tolerating by mouth Electrolytes: -Monitor and replete as needed Nutrition: Diabetic diet Problem Qualifiers (1) HTN (hypertension): Qualified Codes: I10 - Essential (primary) hypertension Heyen,Jim J MD, R2 Nov 22, 2017 09:47
[2017-11-22 09:50] LABS: BICARBONATE 26.2 MEQ/L (21.0-32.0); CALCIUM 9.3 MG/DL (8.5-10.1); CREATININE 0.85 MG/DL (0.60-1.30)
--- NOTE | 2017-11-22 15:18 | PD.POD ---
Subjective Pain score: 0 Remarks Postop day 1 no pain wants to go home understands awaiting pathology Past Med/Surg/Social History Social History Smoking Status: Never Smoker Objective Vital Signs Vital Signs Date Time Temp Pulse Resp B/P (MAP) Pulse Ox O2 Delivery O2 Flow Rate FiO2 11/22/17 12:00 97.6 63 16 129/66 (87) 96 11/22/17 08:00 96.3 65 17 139/73 (95) 93 11/22/17 00:00 97.6 86 18 133/60 (84) 97 11/21/17 20:00 96.2 69 18 122/58 (79) 94 11/21/17 17:23 96 Nasal Cannula 3.00 11/21/17 16:00 96.9 62 16 124/58 (80) 96 Coded Allergies: *MDRO Multi-Drug Resistant Organism (Verified Allergy, Unknown, 11/20/17) Hx MRSA 2011 Neck Wound Medications and IVs Administered Medications Medications (Trade) Dose Ordered Sig/Pamela Route PRN Reason Start Time Stop Time Status Last Admin Dose Admin Sodium Chloride (NS Flush) 2 ml BID IV FLUSH 11/20/17 21:00 11/22/17 09:00 Senna/Docusate Sodium (Annalee-Colace) 1 tab BID PO 11/20/17 21:00 11/22/17 09:07 Levofloxacin (Levaquin) 750 mg DAILY PO 11/21/17 09:00 11/22/17 09:07 Gabapentin (Neurontin) 300 mg TID PO 11/20/17 18:00 11/22/17 12:32 Lisinopril (Prinivil) 5 mg DAILY PO 11/21/17 09:00 11/21/17 10:44 Tramadol HCl (Ultram) 50 mg Q4H PRN PO PAIN 1-10 11/20/17 13:30 11/20/17 23:17 Lactated Ringer's 1,000 ml @ 30 mls/hr Q24H PRN IV SEE LABEL COMMENTS 11/20/17 19:45 11/23/17 19:44 11/21/17 08:33 Other Results Laboratory Tests Test 11/21/17 14:15 11/22/17 08:50 White Blood Count 7.8 TH/MM3 8.8 TH/MM3 Red Blood Count 4.24 MIL/MM3 4.31 MIL/MM3 Hemoglobin 12.0 GM/DL 12.2 GM/DL Hematocrit 36.5 % 37.1 % Mean Corpuscular Volume 86.2 FL 86.2 FL Mean Corpuscular Hemoglobin 28.4 PG 28.3 PG Mean Corpuscular Hemoglobin Concent 33.0 % 32.9 % Red Cell Distribution Width 14.0 % 13.6 % Platelet Count 222 TH/MM3 219 TH/MM3 Mean Platelet Volume 8.6 FL 8.8 FL Neutrophils (%) (Auto) 60.9 % Lymphocytes (%) (Auto) 29.4 % Monocytes (%) (Auto) 7.1 % Eosinophils (%) (Auto) 2.0 % Basophils (%) (Auto) 0.6 % Neutrophils # (Auto) 4.7 TH/MM3 Lymphocytes # (Auto) 2.3 TH/MM3 Monocytes # (Auto) 0.6 TH/MM3 Eosinophils # (Auto) 0.2 TH/MM3 Basophils # (Auto) 0.1 TH/MM3 CBC Comment DIFF FINAL Differential Comment Laboratory Tests Test 11/21/17 14:15 11/22/17 02:45 11/22/17 08:50 Blood Urea Nitrogen 17 MG/DL 17 MG/DL Creatinine 0.76 MG/DL 0.77 MG/DL 0.85 MG/DL Random Glucose 69 MG/DL 85 MG/DL Calcium Level 8.9 MG/DL 9.3 MG/DL Sodium Level 140 MEQ/L 139 MEQ/L Potassium Level 4.0 MEQ/L 4.0 MEQ/L Chloride Level 105 MEQ/L 106 MEQ/L Carbon Dioxide Level 27.5 MEQ/L 26.2 MEQ/L Anion Gap 8 MEQ/L 7 MEQ/L Estimat Glomerular Filtration Rate 105 ML/MIN 104 ML/MIN 93 ML/MIN Microbiology Date/Time Source Procedure Growth Status 11/20/17 08:40 Blood Peripheral Aerobic Blood Culture - Preliminary NO GROWTH IN 2 DAYS Resulted 11/20/17 08:40 Blood Peripheral Anaerobic Blood Culture - Preliminary NO GROWTH IN 2 DAYS Resulted 11/20/17 08:35 Blood Peripheral Aerobic Blood Culture - Preliminary NO GROWTH IN 2 DAYS Resulted 11/20/17 08:35 Blood Peripheral Anaerobic Blood Culture - Preliminary NO GROWTH IN 2 DAYS Resulted 11/21/17 09:22 Wound Toe Fungal Smear - Final NO FUNGAL ELEMENTS SEEN. Resulted 11/21/17 09:22 Wound Toe Fungal Culture Pending Resulted 11/21/17 09:22 Wound Toe Acid Fast Stain - Final NO ACID FAST BACILLI SEEN Resulted 11/21/17 09:22 Wound Toe Mycobacterial Culture Pending Resulted 11/21/17 09:22 Wound Toe Gram Stain - Final Resulted 11/21/17 09:22 Wound Toe Wound Culture - Preliminary NO GROWTH IN 24 HOURS. Resulted Pathology bone pending Physical Exam Remarks Amputation site well coapted no signs of infection mild edema and mild serosanguineous drainage right hallux Assessment & Plan Diagnosis: (1) Diabetic ulcer of toe of right foot associated with type 2 diabetes mellitus , with necrosis of bone ICD Codes: E11.621 - Type 2 diabetes mellitus with foot ulcer; L97.514 - Non- pressure chronic ulcer of other part of right foot with necrosis of bone (2) Osteomyelitis of ankle or foot, right, acute ICD Codes: M86.171 - Other acute osteomyelitis, right ankle and foot A/P Bandages changed micro-appears negative at this point awaiting bone pathology. Once pathology results likely recommend by mouth antibiotics and discharged home , patient is heel weightbearing only at this point Vinny Meléndez DPM Nov 22, 2017 15:18
[2017-11-23 07:11] LABS: AUTOMATED NEUTROPHIL # 4.6 TH/MM3 (1.8-7.7); BASOPHIL # 0.1 TH/MM3 (0-0.2); BASOPHIL % 0.8 % (0.0-2.0); EOSINOPHIL # 0.2 TH/MM3 (0-0.4); EOSINOPHIL % 2.3 % (0.0-4.0); HEMATOCRIT 36.5 % (39.0-51.0); LYMPH % 32.7 % (9.0-44.0); LYMPHOCYTE # 2.6 TH/MM3 (1.0-4.8); MEAN CELL VOLUME 86.4 FL (80.0-100.0); MEAN CORPUSCULAR HEMOGLOBIN 28.5 PG (27.0-34.0); MEAN PLATELET VOLUME 8.5 FL (7.0-11.0); MONO % 7.5 % (0.0-8.0); MONOCYTE # 0.6 TH/MM3 (0-0.9); NEUT % 56.7 % (16.0-70.0); PLATELET COUNT 210 TH/MM3 (150-450); RED BLOOD COUNT 4.22 MIL/MM3 (4.50-5.90); RED CELL DISTRIBUTION WIDTH 13.9 % (11.6-17.2); WHITE BLOOD COUNT 8.1 TH/MM3 (4.0-11.0)
[2017-11-23 07:21] LABS: BICARBONATE 25.1 MEQ/L (21.0-32.0); CALCIUM 9.4 MG/DL (8.5-10.1); CREATININE 0.68 MG/DL (0.60-1.30)
[2017-11-23 08:00] VITALS: BP 154/77; PULSE 58; RESP 19; TEMP 96.7; O2SAT 94
[2017-11-23] MEDS: INSULIN NovoLIN REGULAR SUPPLEMENTAL SCALE SQ SCH ×3 (08:00→17:03)
[2017-11-23] MEDS: DOCUSATE SODIUM 50 MG/SENNA 8.6 MG TAB PO SCH (08:54)
[2017-11-23] MEDS: GABAPENTIN 300 MG CAP PO SCH ×2 (08:54→13:22)
[2017-11-23] MEDS: LISINOPRIL 5 MG TAB PO SCH ×2 (08:54→08:59)
[2017-11-23] MEDS: SODIUM CHLORIDE 0.9% FLUSH 10 ML FLUSH IV FLUSH SCH (08:54)
[2017-11-23] MEDS: LEVOFLOXACIN 750 MG TAB PO SCH (08:55)
[2017-11-23 08:57] VITALS: O2SAT 94
--- NOTE | 2017-11-23 10:38 | HHI.FPPN ---
Subjective Remarks Patient seen and examined this morning. No acute events overnight. No pain in his foot, leg. Denies nausea, vomiting, fever, chills, abdominal pain, chest pain, shortness of breath. No other complaints today. Eager to go home. Objective Vitals Vital Signs Date Time Temp Pulse Resp B/P (MAP) Pulse Ox O2 Delivery O2 Flow Rate FiO2 11/23/17 08:57 94 Nasal Cannula 3.00 11/23/17 08:00 96.7 58 19 154/77 (102) 94 11/22/17 23:49 97.2 68 20 144/67 (92) 94 11/22/17 20:22 95 Nasal Cannula 3.00 11/22/17 20:00 96.8 66 20 157/70 (99) 93 11/22/17 16:00 97.4 65 16 131/60 (83) 95 11/22/17 12:00 97.6 63 16 129/66 (87) 96 I/O 11/22/17 11/22/17 11/22/17 11/23/17 11/23/17 11/23/17 07:00 15:00 23:00 07:00 15:00 23:00 Intake Total 880 ml 500 ml 880 ml Balance 880 ml 500 ml 880 ml Intake Oral 360 ml 500 ml 360 ml IV Total 520 ml 520 ml # Voids 2 3 2 # Bowel Movements 0 0 0 Result Diagram: 11/23/1744 11/23/17 0644 Objective Remarks GENERAL: This is a obese, well-developed patient, in no apparent distress. CARDIOVASCULAR: Regular rate and rhythm without murmurs; normal peripheral perfusion RESPIRATORY: Clear to auscultation. Breath sounds equal bilaterally. No wheezes to auscultation GASTROINTESTINAL: Abdomen soft, non-tender, nondistended. MUSCULOSKELETAL: Extremities without edema. No calf tenderness. RLE: Foot covered in bandage. Clean/dry/intact. NEUROLOGICAL: Awake and alert. Procedures 11/21 right hallux partial amputation A/P Assessment and Plan Mr. Brice is a 57-year-old male with PMH T2DM who presents with with 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 Patient and on-call gear tooth grinding machine operator (Vinny Meléndez) report osteomyelitis on previous MRI last week. Currently without signs or symptoms of septicemia. Discharge Planning Pending podiatry recs Problem List: (1) Osteomyelitis of ankle or foot, right, acute ICD Codes: M86.171 - Other acute osteomyelitis, right ankle and foot Plan: POD#2 from right hallux partial amputation (11/21) -Continue antibiotic treatment * Vancomycin 1500 mg 3 times a day * Levaquin 750 mg daily by mouth (good bone penetration) -Follow recommendations by gear tooth grinding machine operator -Awaiting pathology results -Monitor for signs of septicemia Impression: Osteomyelitis of right hallux without signs of septicemia at this time. Patient of gear tooth grinding machine operator Dr. Zuniga. Outpatient [facility] ([facility])- osteomyelitis of distal phalanx Toe XR on admission without obvious cortical erosion; 5th toe with majority of 5th metatarsal resected Cultures/biopsies: Toe biopsy- pending Toe gram stain/cultures- gram stain negative and no fungal elements seen Blood cultures (11/20)- NGTD (2) DM (diabetes mellitus) ICD Codes: E11.9 - Type 2 diabetes mellitus without complications Status: Chronic Plan: Impression: Diabetes type 2. A1C 8.9 08/2017 -Hold home medications for now -Low-dose sliding scale insulin -Bedside glucose checks (3) HTN (hypertension) ICD Codes: I10 - Essential (primary) hypertension Status: Chronic Plan: Impression: Chronic hypertension. Normal Cr -Continue home medications -Lisinopril 5 mg daily -Will consider increasing to 10mg on discharge as patient has been frequently hypertensive at prior hospitalizations per EMR -Will add PRN hydralazine (4) Diabetic neuropathy ICD Codes: E11.40 - Type 2 diabetes mellitus with diabetic neuropathy, unspecified Plan: Continue home medications -Gabapentin 300 mg by mouth 3 times a day -Tramadol 50 mg by mouth every 4hrs when necessary (5) FEN Plan: Fluids: Tolerating by mouth Electrolytes: -Monitor and replete as needed Nutrition: Diabetic diet Problem Qualifiers (1) HTN (hypertension): Qualified Codes: I10 - Essential (primary) hypertension Ok Cotto MD R1 Nov 23, 2017 10:38
[2017-11-23 12:00] VITALS: BP 145/67; PULSE 65; RESP 19; TEMP 96.8; O2SAT 95
[2017-11-23 16:00] VITALS: BP 177/84; PULSE 61; RESP 19; TEMP 96.9; O2SAT 95
[2017-11-23] MEDS: VANCOMYCIN INJ 2,000 MG in SODIUM CHLORID 0.9% 500 ML INJ 500 ML IV SCH (16:01)
--- NOTE | 2017-11-23 16:43 | HHI.DCPOC ---
Discharge Care Plan Diagnosis: (1) History of amputation of hallux (2) Diabetic ulcer of toe of right foot associated with type 2 diabetes mellitus , with necrosis of bone (3) HTN (hypertension) Goals to Promote Your Health * To prevent worsening of your condition and complications * To maintain your health at the optimal level Directions to Meet Your Goals Take your medications as prescribed Follow your dietary instruction Follow activity as directed Keep your appointments as scheduled Take your immunizations and boosters as scheduled If your symptoms worsen call your PCP, if no PCP go to Urgent Care Center or Emergency Room Smoking is Dangerous to Your Health. Avoid second hand smoke Call the 24-hour hour crisis hotline for domestic abuse at Jim Connolly MD, R2 Nov 23, 2017 16:42
--- NOTE | 2017-11-23 17:02 | PD.POD ---
Subjective Pain score: 0 Remarks Ready to go home. Past Med/Surg/Social History Social History Smoking Status: Never Smoker Objective Vital Signs Vital Signs Date Time Temp Pulse Resp B/P (MAP) Pulse Ox O2 Delivery O2 Flow Rate FiO2 11/23/17 16:00 96.9 61 19 177/84 (115) 95 11/23/17 12:00 96.8 65 19 145/67 (93) 95 11/23/17 08:57 94 Nasal Cannula 3.00 11/23/17 08:00 96.7 58 19 154/77 (102) 94 11/22/17 23:49 97.2 68 20 144/67 (92) 94 11/22/17 20:22 95 Nasal Cannula 3.00 11/22/17 20:00 96.8 66 20 157/70 (99) 93 Coded Allergies: *MDRO Multi-Drug Resistant Organism (Verified Allergy, Unknown, 11/20/17) Hx MRSA 2011 Neck Wound Medications and IVs Administered Medications Medications (Trade) Dose Ordered Sig/Pamela Route PRN Reason Start Time Stop Time Status Last Admin Dose Admin Sodium Chloride (NS Flush) 2 ml BID IV FLUSH 11/20/17 21:00 11/23/17 08:54 Senna/Docusate Sodium (Annalee-Colace) 1 tab BID PO 11/20/17 21:00 11/23/17 08:54 Levofloxacin (Levaquin) 750 mg DAILY PO 11/21/17 09:00 11/23/17 08:55 Insulin Human Regular (NovoLIN R SUPPLEMENTAL SCALE) 1 ACHS SLIDING SCALE SQ 11/20/17 17:00 11/23/17 13:23 Gabapentin (Neurontin) 300 mg TID PO 11/20/17 18:00 11/23/17 13:22 Lisinopril (Prinivil) 5 mg DAILY PO 11/21/17 09:00 11/21/17 10:44 Tramadol HCl (Ultram) 50 mg Q4H PRN PO PAIN 1-10 11/20/17 13:30 11/20/17 23:17 Lactated Ringer's 1,000 ml @ 30 mls/hr Q24H PRN IV SEE LABEL COMMENTS 11/20/17 19:45 11/23/17 19:44 11/21/17 08:33 Hydralazine HCl (Apresoline) 10 mg Q8HR PRN PO SBP> OR = 180, DBP> OR = 100 11/21/17 13:45 11/23/17 16:00 Vancomycin HCl 2000 mg/Sodium Chloride 520 ml @ 250 mls/hr Q18H IV 11/22/17 21:00 11/23/17 16:01 Other Results Laboratory Tests Test 11/22/17 08:50 11/23/17 06:44 White Blood Count 8.8 TH/MM3 8.1 TH/MM3 Red Blood Count 4.31 MIL/MM3 4.22 MIL/MM3 Hemoglobin 12.2 GM/DL 12.0 GM/DL Hematocrit 37.1 % 36.5 % Mean Corpuscular Volume 86.2 FL 86.4 FL Mean Corpuscular Hemoglobin 28.3 PG 28.5 PG Mean Corpuscular Hemoglobin Concent 32.9 % 33.0 % Red Cell Distribution Width 13.6 % 13.9 % Platelet Count 219 TH/MM3 210 TH/MM3 Mean Platelet Volume 8.8 FL 8.5 FL Neutrophils (%) (Auto) 56.7 % Lymphocytes (%) (Auto) 32.7 % Monocytes (%) (Auto) 7.5 % Eosinophils (%) (Auto) 2.3 % Basophils (%) (Auto) 0.8 % Neutrophils # (Auto) 4.6 TH/MM3 Lymphocytes # (Auto) 2.6 TH/MM3 Monocytes # (Auto) 0.6 TH/MM3 Eosinophils # (Auto) 0.2 TH/MM3 Basophils # (Auto) 0.1 TH/MM3 CBC Comment DIFF FINAL Differential Comment Laboratory Tests Test 11/22/17 02:45 11/22/17 08:50 11/23/17 06:44 Creatinine 0.77 MG/DL 0.85 MG/DL 0.68 MG/DL Estimat Glomerular Filtration Rate 104 ML/MIN 93 ML/MIN 120 ML/MIN Blood Urea Nitrogen 17 MG/DL 18 MG/DL Random Glucose 85 MG/DL 135 MG/DL Calcium Level 9.3 MG/DL 9.4 MG/DL Sodium Level 139 MEQ/L 139 MEQ/L Potassium Level 4.0 MEQ/L 4.0 MEQ/L Chloride Level 106 MEQ/L 106 MEQ/L Carbon Dioxide Level 26.2 MEQ/L 25.1 MEQ/L Anion Gap 7 MEQ/L 8 MEQ/L Microbiology Date/Time Source Procedure Growth Status 11/21/17 09:22 Wound Toe Fungal Smear - Final NO FUNGAL ELEMENTS SEEN. Resulted 11/21/17 09:22 Wound Toe Fungal Culture Pending Resulted 11/21/17 09:22 Wound Toe Acid Fast Stain - Final NO ACID FAST BACILLI SEEN Resulted 11/21/17 09:22 Wound Toe Mycobacterial Culture Pending Resulted 11/21/17 09:22 Wound Toe Gram Stain - Final Resulted 11/21/17 09:22 Wound Toe Wound Culture - Preliminary NO GROWTH IN 48 HOURS. Resulted Bone path neg Exam-Podiatry Remarks Amputation site well coapted no signs of infection mild edema and mild serosanguineous drainage right hallux Assessment & Plan Diagnosis: (1) Diabetic ulcer of toe of right foot associated with type 2 diabetes mellitus , with necrosis of bone ICD Codes: E11.621 - Type 2 diabetes mellitus with foot ulcer; L97.514 - Non- pressure chronic ulcer of other part of right foot with necrosis of bone (2) Osteomyelitis of ankle or foot, right, acute ICD Codes: M86.171 - Other acute osteomyelitis, right ankle and foot A/P Bandage changed ok to Dc home FU out with Dr Zuniga. Reviewed minimal walking heel WB in [place] brown, pt has. Notified nurse ok to Dc per podiatry. Vinny Meléndez DPM Nov 23, 2017 17:02
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
[2017-11-23 17:23] VITALS: O2SAT 95
[2017-11-25] MEDS ORDERED: PHARMACY ORDERED LAB ONE (02:45)
== END 2017-11-23 18:13 | disposition home or self-care (01) | DRG 617 ==
LOC: NEPE 07:56 → NEDA 10:51 → N07A 12:06
PROVIDERS: ADMIT Family Medicine; ATTEND Family Medicine
PROC: 0Y6P0Z0 Detachment at Right 1st Toe, Complete, Open Approach (ICD-10-PCS; principal; 2017-11-21 08:48)
DX: E11.69 Type 2 diabetes mellitus with other specified complication (principal); M86.171 Other acute osteomyelitis, right ankle and foot; E11.40 Type 2 diabetes mellitus with diabetic neuropathy, unspecified; Z68.41 Body mass index [BMI] 40.0-44.9, adult; I10 Essential (primary) hypertension; E11.622 Type 2 diabetes mellitus with other skin ulcer; L97.514 Non-pressure chronic ulcer of other part of right foot with necrosis of bone; E66.9 Obesity, unspecified; M19.90 Unspecified osteoarthritis, unspecified site; G47.30 Sleep apnea, unspecified; E78.5 Hyperlipidemia, unspecified; Z79.4 Long term (current) use of insulin; Z86.14 Personal history of Methicillin resistant Staphylococcus aureus infection; Z89.421 Acquired absence of other right toe(s)
CPT/HCPCS: 71010; 73660; 80048; 80202; 82565; 82948; 85025; 85027; 85610; 85730; 87015; 87040; 87070; 87102; 87116; 87205; 87206; 88305; 88307; 88311; 99285; J0330; J2370; J3370; J7040; J7120